=== PATIENT | male | born 1970 | race Caucasian/White ===

== ENCOUNTER 2018-07-03 14:03 | Emergency (ER) | payer MEDICAID, SELFPAY ==
--- NOTE | 2018-07-03 14:09 | NUR.NOTE ---
pt developed 10/10 abdominal pain upon awaking as 0600 am pain has persisted
[2018-07-03 14:10] VITALS: BP 161/71; PULSE 77; RESP 16; TEMP 36.8; O2SAT 99
--- NOTE | 2018-07-03 14:12 | DI.CT_ITS ---
SYMPTOMS/DIAGNOSIS: LEFT LOWER QUADRANT PAIN, HEMATURIA, NAUSEA CT OF THE ABDOMEN AND PELVIS: There are no prior comparison exams. Images were performed from the lung bases through the ischial tuberosities after IV and without oral contrast. There are a few scattered diverticula. There is no evidence of diverticulitis. The colon is mainly decompressed. There is a minimal amount of stool seen in the cecum. The appendix appears normal. There is no small bowel distention. The liver, gallbladder, spleen and pancreas are unremarkable. There is a stone measuring 4 mm seen at the left ureteropelvic junction causing mild left hydronephrosis. There is a mild delay in the left nephrogram. No additional urinary tract calculi are seen. The urinary bladder is nearly empty. There is a mild amount of right perinephric stranding. The prostate appears mildly enlarged. There are bilateral fatty-containing inguinal hernias. The lung bases are clear. No bony abnormalities are seen. IMPRESSION: A 5 mm stone at the left ureteropelvic junction causing mild hydronephrosis. There is mild diverticulosis, but no evidence of diverticulitis.
--- NOTE | 2018-07-03 14:16 | ED.GENADUL_ITS ---
Discharge Plan Disposition Patient Disposition: HOME Condition: Improving Discharge Details Chief Complaint: Abd Prob Clinical Impression: Kidney stone on left side Primary Care Provider: None,None ED Provider: Yaya Barba Home Meds and New Rx's Prescriptions: New diclofenac potassium 50 mg tablet 50 mg PO TID PRN (Reason: pain) Qty: 14 RF: 0 tamsulosin [Flomax] 0.4 mg capsule 0.4 mg PO DAILY Qty: 14 RF: 0 Discharge Instructions Instructions: Kidney Stones (ED) Additional Instructions: Take medication as prescribed and call urology office next week for arrangement of follow-up appointment. Return to emergency department immediately if you have any new or significant worsening of symptoms, fever chills, or any further concerns. Referrals: Jack Tatum MD [ [facility] STAFF PHYSICIAN] - (Follow-up with urologist in 1-2 weeks. Call their office for arrangement of appointment) Medical Decision Making Patient presenting to the emergency department for chief complaint of severe left lower quadrant pain. Patient states that this started this morning and did cause some nausea and vomiting and he has not been able to tolerate any p.o. intake. Physical exam shows no abdominal tenderness, no CVA tenderness, normal cardiac and respiratory examination. Patient denies any urinary symptoms. Plan to check labs and do CT imaging. Patient does state ibuprofen allergy just states some upset stomach but denies any anaphylactoid type reaction, rash, difficulty breathing swallowing or swelling to the lips tongues or mouth. did discuss with patient use of ketorolac for pain control which he was open using this as he states that he does not believe he has any other issues with other NSAIDs. Review of labs show a mild nonspecific leukocytosis, nondiagnostic CMP, urinalysis with significant amount of RBCs Review of CT images along with speaking with radiologist shows a 5 mm stone in the ureteropelvic junction with mild left hydronephrosis otherwise no other acute findings noted. Patient reassessed and stated that he did have significant improvement with the ketorolac and had no ill side effects. Patient was informed of kidney stone which he states he does have a history of stones but has not had one for 20 years. Patient placed upon Flomax and diclofenac and placed upon follow-up list for urology. Return precautions discussed. After discussion of diagnosis and plan of care patient has no further needs, questions, or concerns and states clear understanding to return to the emergency department for any worsening symptoms. HPI General Mode of arrival: ambulatory . Date/Time Provider Initiated Documentation: 07/03/18 14:07 . Limitations to Documentation: no limitations . Information obtained by: patient and RN notes reviewed . History of Present Illness 48 year old M presents to the emergency department with the chief complaint of abd pain, described as moderate, with intensity rated at 10. Quality is described as sharp, and is localized to the abdomen and left. Patient started experiencing this hour(s) (8) and it has been constant. Patient did receive the following treatments prior to arrival, none Related Data Home Medications Medication Instructions Recorded Confirmed diclofenac potassium 50 mg PO TID PRN #14 tab 07/03/18 tamsulosin [Flomax] 0.4 mg PO DAILY #14 cap 07/03/18 Previous Rx's Medication Instructions Recorded diclofenac potassium 50 mg PO TID PRN #14 tab 07/03/18 tamsulosin [Flomax] 0.4 mg PO DAILY #14 cap 07/03/18 Allergies Allergy/AdvReac Type Severity Reaction Status Date / Time ibuprofen Allergy Intermediate Unverified 07/03/18 14:15 acetaminophen [From Percocet] Allergy Mild Unverified 07/03/18 14:15 codeine Allergy Mild Unverified 07/03/18 14:15 oxycodone [From Percocet] Allergy Mild Unverified 07/03/18 14:15 Penicillins Allergy Mild Unverified 07/03/18 14:16 Review of Systems Constitutional Denies chills, Denies fever(s) and Reports poor appetite Cardiovascular Denies chest pain and Denies dyspnea Respiratory Denies cough and Denies dyspnea Gastrointestinal Reports as per HPI, Reports abdominal pain, Denies melena, Denies change in bowel habits, Denies constipation, Reports diarrhea, Reports nausea and Reports vomiting Genitourinary Denies hematuria, Denies difficulty urinating, Denies urinary hesitancy, Denies urinary incontinence and Denies urinary urgency Integumentary/Breasts Denies rash Exam Const General: cooperative Orientation: alert, awake and oriented x3 Resp Effort & Inspection: normal respiratory effort and able to speak in complete sentences Auscultation: clear to auscultation bilaterally Cardio Rate: regular rate Rhythm: regular rhythm Heart Sounds: S1 normal and S2 normal GI Palpation: soft, no hepatosplenomegaly, not firm, no guarding, no masses, no pulsatile masses, not rigid, no splenomegaly and nontender Auscultation: hypoactive bowel sounds Back/Spine/Pelvis Back: no CVA tenderness Neuro General: alert, awake, oriented x3, gait normal and moves all extremities
[2018-07-03 14:40] LABS: Abs Immature Grans 0.03 k/cumm (0.0-0.09); Absolute Basophil Count 0.01 k/cumm (0.0-0.2); Absolute Lymphocyte Count 1.13 k/cumm (1.2-3.4); Absolute Monocyte Count 0.26 k/cumm (0.11-0.7); Basophils % 0.1; HCT 45.7 % (40.0-50.0); Immature Grans % 0.3; Mean Corpuscular Hemoglobin 30.4 pg (27.0-33.0); Mean Corpuscular Volume 86.7 fL (80-95); Monocytes % 2.3; Neutrophils % 87.3; Platelet Count 309 x1000/uL (130-400); RBC 5.27 m/cumm (4.50-6.00); RBC Distribution Width 12.2 % (11.8-14.1); White Blood Cell Count 11.34 k/cumm (4.4-10.8)
[2018-07-03] MEDS: Ketorolac 30 MG/ML VIAL (14:44)
[2018-07-03] MEDS: Normal Saline 1,000 ML 1000 ML IV (14:44)
[2018-07-03] MEDS: Ondansetron 4 MG/2 ML VIAL IVP (14:45)
[2018-07-03 14:53] LABS: ALT 19 U/L (12-78); AST 14 U/L (15-37); Albumin 4.1 g/dL (3.4-5.0); Alkaline Phosphatase 63 U/L (46-116); Anion Gap 10.5 mmol/L (3-11); BUN 8 mg/dL (7-18); Bilirubin, Total 0.8 mg/dL (0.2-1.0); CO2 29.5 mmol/L (21.0-32.0); CREATININE 1.26 mg/dL (0.70-1.30); Calcium 9.5 mg/dL (8.5-10.1); Chloride 101 mmol/L (98-107); Glucose 168 mg/dL (70-100); Lipase 93 U/L (73-393); Potassium 3.5 mmol/L (3.5-5.1); Sodium 141 mmol/L (136-145); Total Protein 8.3 g/dL (6.4-8.2)
[2018-07-03] MEDS: Omnipaque 350 MG/ML 100 ML BTL IJ (15:20)
[2018-07-03 15:43] LABS: Bilirubin Moderate (Negative); Blood Large (Negative); Glucose Negative (Negative); Ketones >=160 mg/dL (Negative); Leukocyte Esterase Negative (Negative); Nitrite Negative (Negative); Specific Gravity >= 1.030 (1.005-1.025); Urobilinogen 0.2 EU/dL (Up TO 0.2); pH 6.5 (5-8)
[2018-07-03 15:44] LABS: Clarity Cloudy
[2018-07-03 15:51] LABS: C & S Indicated? Yes; RBC >50 (0-2)
[2018-07-03 16:52] VITALS: BP 161/71; PULSE 77; RESP 16; TEMP 36.8; O2SAT 99
--- NOTE | 2018-07-06 12:14 | PDOC.ERCMPRO ---
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 Referral faxed to [facility] this am. Trav also called this CM today to discuss his visit here. Trav states he was pleased with the care he received and wanted to know how the referral would work. This CM explained to Trav that a referral had already been faxed to Urology and that Urology would call him with a f/u appt. Trav stated that pain was much better, he was able to get some sleep, and that he had a little burning still this morning but is much more tolerable. Trav has this CM's contact information if further assistance is needed.
--- NOTE | 2018-07-06 12:17 | CMPROGNOTE_ITS ---
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 Referral faxed to [facility] this am. Trav also called this CM today to discuss his visit here. Trav states he was pleased with the care he received and wanted to know how the referral would work. This CM explained to Trav that a referral had already been faxed to Urology and that Urology would call him with a f/u appt. Trav stated that pain was much better, he was able to get some sleep, and that he had a little burning still this morning but is much more tolerable. Trav has this CM's contact information if further assistance is needed.
== END 2018-07-03 16:55 | disposition home or self-care (01) ==
PROVIDERS: Emergency Provider Nurse Practitioner Family
DX: N20.0 Calculus of kidney (principal); R11.2 Nausea with vomiting, unspecified; Z87.442 Personal history of urinary calculi
CPT/HCPCS: 36415; 80053; 83690; 96361; 96374; 96375; 99285; 74177; 81003; 81015; 85025; 87086; 99284; J1885; J2405; J3490

== ENCOUNTER 2018-08-17 00:56 | Outpatient (CLI) | payer MEDICAID, SELFPAY ==
--- NOTE | 2018-08-17 15:30 | DI.US_ITS ---
SYMPTOM/DIAGNOSIS: MONITORING HYDRONEPHROSIS RENAL ULTRASOUND: The right kidney measures 9.2 cm, the left kidney measures 9.9 cm. There is no evidence of hydronephrosis. Pre-void bladder contains 114 cc. Post-void bladder 6 cc. Prostate volume is 13 cc. SUMMARY: Normal renal ultrasound.
== END 2018-08-17 01:16 ==
PROVIDERS: Visit Provider Nurse Practitioner Gerontology
DX: N13.2 Hydronephrosis with renal and ureteral calculous obstruction (principal)
CPT/HCPCS: 76770

== ENCOUNTER 2018-09-02 08:21 | Outpatient (REF) | payer MEDICAID, SELFPAY ==
[2018-09-02 13:13] LABS: Abs Immature Grans 0.02 k/cumm (0.0-0.09); Absolute Basophil Count 0.01 k/cumm (0.0-0.2); Absolute Eosinophil Count 0.06 k/cumm (0.0-0.7); Absolute Lymphocyte Count 2.04 k/cumm (1.2-3.4); Absolute Monocyte Count 0.44 k/cumm (0.11-0.7); Absolute Neutrophil Count 2.84 k/cumm (1.2-6.7); Basophils % 0.2; Eosinophils % 1.1; HCT 44.2 % (40.0-50.0); HGB 14.9 g/dL (13.5-17.5); Immature Grans % 0.4; Lymphocytes % 37.7; Mean Corp. HGB Concentration 33.7 g/dL (32.0-36.0); Mean Corpuscular Hemoglobin 30.7 pg (27.0-33.0); Mean Corpuscular Volume 90.9 fL (80-95); Mean Platelet Volume 9.7 fL (8.0-11.0); Monocytes % 8.1; Neutrophils % 52.5; Platelet Count 282 x1000/uL (130-400); RBC 4.86 m/cumm (4.50-6.00); RBC Distribution Width 12.8 % (11.8-14.1); White Blood Cell Count 5.41 k/cumm (4.4-10.8)
[2018-09-02 13:27] LABS: ALT 25 U/L (12-78); AST 12 U/L (15-37); Albumin 3.9 g/dL (3.4-5.0); Alkaline Phosphatase 51 U/L (46-116); Anion Gap 7.1 mmol/L (3-11); BUN 11 mg/dL (7-18); Bilirubin, Total 0.6 mg/dL (0.2-1.0); CO2 31.9 mmol/L (21.0-32.0); CREATININE 0.97 mg/dL (0.70-1.30); Calcium 9.6 mg/dL (8.5-10.1); Chloride 103 mmol/L (98-107); Cholesterol 228 mg/dL (50-200); Glucose 103 mg/dL (70-100); HDL Cholesterol 37 mg/dL (40-60); LDL CHOLESTEROL 174 mg/dL (<100); Potassium 3.8 mmol/L (3.5-5.1); Sodium 142 mmol/L (136-145); Total Protein 7.4 g/dL (6.4-8.2); Triglyceride 81 mg/dL (30-150)
== END 2018-09-02 08:41 ==
LOC: NCHCN 08:21
PROVIDERS: PCP Nurse Practitioner Family; Visit Provider Nurse Practitioner Family
DX: Z00.00 Encounter for general adult medical examination without abnormal findings (principal); Z13.220 Encounter for screening for lipoid disorders; Z13.228 Encounter for screening for other metabolic disorders; Z13.0 Encounter for screening for diseases of the blood and blood-forming organs and certain disorders involving the immune mechanism
CPT/HCPCS: 80053; 80061; 83721; 85025

== ENCOUNTER 2018-09-08 08:14 | Day surgery (SDC) | payer MEDICAID, SELFPAY ==
--- NOTE | 2018-09-08 06:43 | W.COLOREPORT ---
Date of service: 09/08/18 Time of Service: : Colonoscopy Report Date of procedure: 09/08/18 Pre-op diagnosis general: Colon Cancer Screening Post-op diagnosis procedure note: other (Colorectal polyps and Diverticulosis) Procedure: Colonoscopy with polypectomy by cold forceps and hot snare Surgeon: Candis Cash Anesthesia proc note operative: other (General/ ASA 2/ ) Estimated blood loss (mL): 5 Pathology: other (Ascending polyps, polyp @ 20, polyp @ 18 and polyp @15) Complications: None Disposition: no change Indications: Mr. Saunders is a pleasant 48 year old male who was seen in the office for a screening colonoscopy. This is his first colonoscopy. There is no family history of colon cancer. Risks, benefits and complications have been reviewed. Complications include but are not limited to bleeding, pain, perforation, missed small lesion/polyp, sore throat, aspiration and adverse reaction to the medications. Questions were entertained and answered to their satisfaction and they wished to proceed. No guarantees were given or implied. Prep: Miralax/Dulcolax Procedure Start Time: : Procedure End Time: : Retraction Time: 20 minutes Findings: Sanz-diverticulosis 2 sessile polyps, one in the ascending colon and one at 18 cm 2 pedunculated polyps at 20 and 15 cm Procedure Description: After informed consent was obtained the patient was taken to the procedure room and placed in a left decubitous position. Monitors were applied and a time out was done. The patients name, date of , procedure, allergies to medications and metal in their body was reviewed. The patient was then sedated. Once sedated and comfortable a rectal exam was done. External exam was normal. Internal exam revealed a normal sphincter tone and no palpable masses. The prostate felt smooth and normal size. The scope was then introduced and retro-flexed. No internal hemorrhoids were identified. The scope was then advanced to the cecum without difficulty. The TI and appendiceal orifice were identified. The prep was adequate. The scope was then slowly retracted over 20 minutes back into the rectum. 2 Sessile Polyps were removed with cold forceps in the ascending colon and at 15 cm. 2 pedunculated polyps were removed with a hot snare at 20 cm and at 15 cm. The one at 20 cm was 2 cm in size and had a long stalk. The scope was removed and the patient was woken up and taken back to Same day surgery in stable condition. The patient tolerated the procedure well and there were no immediate complications. Follow up: The patient should follow up in 3-5 years unless they develop changes in bowel habits or other new gastrointestinal complaints.
--- NOTE | 2018-09-08 06:45 | W.PM.DSUDISC ---
Discharge Plan Disposition Patient Disposition: HOME Condition: Good Discharge Details Reason For Visit: Colon Cancer Screening Attending Provider: Candis Cash Primary Care Provider: Audi Zarate Home Meds and New Rx's Prescriptions: Continued acetaminophen [Tylenol Extra Strength] 500 mg Tablet 2 mg PO PRN PRNRF: 0 Discontinued polyethylene glycol 3350 17 gram/dose powder 238 g PO ONCE Qty: 238 RF: 0 bisacodyl [Dulcolax (bisacodyl)] 5 mg tablet,delayed release (DR/EC) 5 mg PO ONCE Qty: 4 RF: 0 Discharge Instructions Instructions: Colonoscopy (DC), Diverticulosis (DC), Colorectal Polyps (DC) Additional Instructions: Findings: 4 polyps Diverticulosis Follow up: 3-5 years Please call if you develop: fevers >101.5 Nausea or Vomiting Abdominal pain that is not transient DAY SURGERY UNIT POST COLONOSCOPY INSTRUCTIONS 1. Because there will be medication in your system for the next 24 hours, you may feel a little sleepy. Your coordination will be affected. Therefore: a. Do not drive or operate dangerous equipment for 24 hours. b. Do not drink alcohol beverages for 24 hours (not even beer). c. Plan to go home and rest for the day. 2. Generally there are no restrictions on your activity after a day or so has gone by, but you may feel a bit fatigued for a few days. 3 After you arrive home you may have a light meal and return to a normal diet as you can tolerate it without feeling sick to your stomach. 4. After surgery, you may feel pain or discomfort. This should be only transient, but if it persists please contact your doctor. 5. If there are any questions regarding the findings of your procedure, please feel free to contact your doctor. 6. If you are unable to contact your doctor with a problem, contact the hospital at [phone]. 7. Continue all your regular medications unless directed otherwise. I understand the above instructions and have no questions. Signature of Patient or Responsible Adult Escort Date/Time Name of Responsible Adult Escort Signature of Nurse Date/Time Activity:: Activity as Tolerated Diet:: high fiber diet Discharge Orders Discharge Orders: Discharge Order (Routine); Ordered 09/08/18 Ordered By: Candis Cash DS: Diagnosis Discharge Diagnosis (1) S/P colonoscopy: Status: Acute (2) Diverticulosis: Status: Acute (3) Colorectal polyps: Status: Acute
[2018-09-08 08:45] VITALS: BP 129/75; PULSE 85; RESP 18; TEMP 35.6; O2SAT 96
[2018-09-08] MEDS: Lactated Ringers 1,000 ML 80 ML IV (08:55)
--- NOTE | 2018-09-08 10:16 | BOWEL_PTH ---
PATIENT: Trav Saunders LOC: [facility] U#:[id number] AGE/SX: 48/M ROOM: RE09/08/[address]: Candis Cash MD : [id number] BED: DIS: 09/08/2018 SPEC #: [id number] RECD: 09/08/18 12:58 STATUS: FERNANDO REQ #: [id number] ADOLFO: 09/08/18 10:[address]: Candis Cash DEPT: Surgical Specimen RECD BY: Marcela Dubois ENTERED: 09/08/18 12:59 SP TYPE: Bowel OTHR DR: Audi Zarate Tissues: 1 - BIOPSY BOWEL 2 - BIOPSY BOWEL 3 - BIOPSY BOWEL 4 - BIOPSY BOWEL Procedures: GROSS AND MICRO LEVEL 4 Comments: [id number]
[2018-09-08 11:02] VITALS: BP 134/87; PULSE 68; RESP 16; TEMP 35.5; O2SAT 99
== END 2018-09-08 11:30 | disposition home or self-care (01) ==
LOC: SUR 08:15
PROVIDERS: PCP Nurse Practitioner Family; Visit Provider Surgery
PROC: 0DJD8ZZ Inspection of Lower Intestinal Tract, Via Natural or Artificial Opening Endoscopic (ICD-10-PCS; CPT 45378; principal; 2018-09-08 09:45)
DX: Z12.11 Encounter for screening for malignant neoplasm of colon (principal); D12.2 Benign neoplasm of ascending colon; K63.5 Polyp of colon; D12.6 Benign neoplasm of colon, unspecified
CPT/HCPCS: 45385; 45380; 88305

== ENCOUNTER 2018-09-11 01:30 | Emergency (ER) | payer MEDICAID, SELFPAY ==
[2018-09-11 01:33] VITALS: BP 151/95; PULSE 71; RESP 26; TEMP 36.7; O2SAT 96
--- NOTE | 2018-09-11 01:40 | ED.GENADUL_ITS ---
Discharge Plan Disposition Patient Disposition: HOME Condition: Good Discharge Details Chief Complaint: Urinary Clinical Impression: Calculus of distal left ureter Primary Care Provider: Audi Zarate ED Provider: Dago Acosta [place] Meds and New Rx's Prescriptions: New tamsulosin 0.4 mg Capsule 0.4 mg PO DAILY Qty: 14 RF: 0 ondansetron 4 mg tablet,disintegrating 4 mg PO TID-QID PRN (Reason: nausea and vomiting) Qty: 10 RF: 0 diclofenac potassium 50 mg tablet 50 mg PO TID PRN (Reason: pain) Qty: 10 RF: 0 Discharge Instructions Instructions: Renal Colic (ED) Additional Instructions: There is a 4 mm stone on the left side at the level of the bladder. It should be small enough to pass on its own. Previously stone was seen at the level of the kidney. There is mild swelling. Labs look okay. Contact urology for follow-up. Take Flomax daily in hopes that it will help the stone pass. Use the diclofenac for pain. You may also take Tylenol if needed. Ondansetron if you develop vomiting. Return to ED for fever, vomiting, worsening pain. Referrals: Jack Tatum MD [ [facility] STAFF PHYSICIAN] - Discharge Data Discharge Date/Time-TO BE ENTERED AT DEPARTURE: 09/11/18 04:49 Medical Decision Making Patient presenting with acute onset of left lower quadrant pain feels similar to previous kidney stone. He reports having normal ultrasound. He did have colonoscopy recently. He has a benign, soft belly. Suspect this is kidney stone but given the recent colonoscopy despite a benign abdomen I am going to rescan. IV established and fluids, Toradol and Zofran given. Patient's symptoms pretty much resolved after the Toradol. Laboratory studies show normal white count and normal kidney function. Urinalysis with blood only, no sign of infection. CT scan shows a distal left ureteral stone at 4 mm with mild to moderate hydro. Previous stone had been at the [facility]. This is likely the same stone as patient does not recall ever passing it. At this point he is very comfortable after just Toradol. We will have him follow-up with urology. Will restart Flomax. We will continue the diclofenac for pain control. He may also use Tylenol. Return to ED if fever, recurrent/severe pain, vomiting. Medical Records Medical records reviewed: Yes I reviewed the patient's medical records. Lab Data Lab results reviewed: Yes I reviewed the patient's lab results. HPI General Mode of arrival: ambulatory . Date/Time Provider Initiated Documentation: 09/11/18 01:36 . Limitations to Documentation: no limitations . Information obtained by: patient and old records reviewed . HPI Narrative: Patient presents to ED with left lower quadrant abdominal pain, nausea, vomiting. Onset was acute. Feels similar to previous kidney stone couple months ago. He has subsequently followed up with urology and had a normal renal ultrasound. He did have a colonoscopy a couple of days ago. He appeared to have no complications from that. He has had no fever, bleeding. He did he has no testicular pain. He has no fever. Related Data Home Medications Medication Instructions Recorded Confirmed diclofenac potassium 50 mg PO TID PRN #10 tab 09/11/18 ondansetron 4 mg PO TID-QID PRN #10 tab 09/11/18 tamsulosin 0.4 mg PO DAILY #14 cap 09/11/18 Previous Rx's Medication Instructions Recorded diclofenac potassium 50 mg PO TID PRN #10 tab 09/11/18 ondansetron 4 mg PO TID-QID PRN #10 tab 09/11/18 tamsulosin 0.4 mg PO DAILY #14 cap 09/11/18 Allergies Allergy/AdvReac Type Severity Reaction Status Date / Time ibuprofen Allergy Severe vomiting Unverified 09/11/18 02:35 oxycodone [From Percocet] Allergy Severe severe Unverified 09/11/18 02:35 vomiting & severe nausea Penicillins Allergy Severe severe Unverified 09/11/18 02:35 joint swelling and hives codeine Allergy Mild Unverified 09/11/18 02:35 General Stated Complaint: Urinary YARED: 3 Review of Systems Review of Systems 02/15 Review of Systems completed and is negative except as stated above in HPI (Systems reviewed: Const, Eyes, ENT, Resp, CV, GI, , MSK, Skin, Neuro) [facility] Medical History Colorectal polyps (Acute ~09/08/18) Diverticulosis (Acute ~09/08/18) History of ADHD (Acute) History of herpes simplex infection (Acute) History of mood disorder (Acute) Kidney stone (Chronic) Surgical History S/P colonoscopy (Acute ~09/08/18) History of tonsillectomy (Chronic) Social History Smoking/Tobacco Use Status: Current, status unknown Alcohol Intake: former Drug use: Daily Substance use type: marijuana Details: Dabbing with marijuana/CBD daily Pt states quit drinking alcohol july 10, 1996 Do you feel safe at home: Yes Do you feel safe in your relationship?: Yes Exam Narrative Exam Narrative: Vitals: Afebrile. Hypertensive. Tachypneic due to discomfort and pain but normal saturations. Const: WDWN male pale and uncomfortable. HEENT: NC/AT. Normal facial exam. Eyes: Normal conjunctiva and sclera. Neck: Supple. Trachea midline. Lungs: Normal respiratory effort. Lungs are clear. Cor: RRR without murmur/gallop. Good radial pulses. GI: Soft. NT/ND. No guarding or rebound. Back: No CVAT. Neuro: A+O x 3. CN grossly in tact. Good strength and no focal deficit. Ext: No C/C/E. No deformity or tenderness. Skin: Warm and dry without rash. Course Vital Signs Temperature 98.1 F 09/11/18 01:33 Pulse 71 09/11/18 01:33 Respiratory Rate 26 H 09/11/18 01:33 Blood Pressure 151/95 H 09/11/18 01:33 Pulse Oximetry 96 09/11/18 01:33 Temperature 98.1 F 09/11/18 01:33 Temperature Source Tympanic 09/11/18 01:33 Pulse 71 09/11/18 01:33 Respiratory Rate 26 H 09/11/18 01:33 Blood Pressure 151/95 H 09/11/18 01:33 Pulse Oximetry 96 09/11/18 01:33 Oxygen Delivery Method Room Air 09/11/18 01:33 Oxygen Flow Rate 0 09/11/18 01:33 Pain Level 3 09/11/18 01:33 Comment 09/11/18 01:33
[2018-09-11 02:10] LABS: Abs Immature Grans 0.03 k/cumm (0.0-0.09); Absolute Basophil Count 0.01 k/cumm (0.0-0.2); Absolute Eosinophil Count 0.02 k/cumm (0.0-0.7); Absolute Lymphocyte Count 1.76 k/cumm (1.2-3.4); Absolute Monocyte Count 0.62 k/cumm (0.11-0.7); Basophils % 0.1; Eosinophils % 0.2; HGB 14.3 g/dL (13.5-17.5); Immature Grans % 0.3; Lymphocytes % 16.2; Mean Corp. HGB Concentration 34.9 g/dL (32.0-36.0); Mean Corpuscular Hemoglobin 30.8 pg (27.0-33.0); Mean Corpuscular Volume 88.2 fL (80-95); Mean Platelet Volume 9.2 fL (8.0-11.0); Monocytes % 5.7; Neutrophils % 77.5; Platelet Count 273 x1000/uL (130-400); RBC 4.65 m/cumm (4.50-6.00); RBC Distribution Width 12.7 % (11.8-14.1); White Blood Cell Count 10.84 k/cumm (4.4-10.8)
[2018-09-11 02:15] LABS: Anion Gap 13.6 mmol/L (3-11); BUN 10 mg/dL (7-18); CO2 24.4 mmol/L (21.0-32.0); Calcium 9.1 mg/dL (8.5-10.1); Chloride 101 mmol/L (98-107); Glucose 154 mg/dL (70-100); Sodium 139 mmol/L (136-145)
[2018-09-11] MEDS: Ketorolac 30 MG/ML VIAL IVP (02:16)
[2018-09-11] MEDS: Ondansetron 4 MG/2 ML VIAL IVP (02:16)
[2018-09-11] MEDS: Normal Saline Flush 10 ML SYR IVP (02:17)
[2018-09-11] MEDS: Lactated Ringers 1,000 ML 1000 ML IV (02:25)
--- NOTE | 2018-09-11 02:30 | DI.CT_ITS ---
SYMPTOM/DIAGNOSIS: LEFT ABDOMINAL PAIN ABDOMINAL/PELVIC CT: 09/11 CT examination of the abdomen and pelvis was performed without contrast administration. Images obtained through the lung bases are unremarkable. Visualized portions of the liver appear intact. Spleen is unremarkable in appearance by noncontrast appearance as are the pancreas, gallbladder and bile ducts. Adrenals appear normal. Small bilateral fat containing inguinal hernias noted. No other significant abdominal wall hernia seen. No abdominal or pelvic adenopathy seen. Appendix is normal. No evidence of diverticulitis or bowel obstruction. There is a tiny nonobstructing right renal calculus. No additional right sided urinary tract calcification seen. There is left hydronephrosis and hydroureter to the level of the ureterovesical junction where there is an apparent intramural approximately 4 mm in diameter obstructing stone. No additional left sided urinary tract calcification identified. CONCLUSION: Obstructing left 4 mm UVJ stone. Nonobstructing right renal calculus noted as well.
--- NOTE | 2018-09-11 03:17 | DI.VRAD_ITS ---
EXAM: CT Abdomen and Pelvis Without Contrast EXAM DATE/TIME: 09/11/2018 1:54 AM CLINICAL HISTORY: 48 years old, male; Localized; Patient HX: Left abdominal pain, previous stone in July TECHNIQUE: Imaging protocol: Axial computed tomography images of the abdomen and pelvis without contrast. Coronal and sagittal reformatted images were created and reviewed. Radiation optimization: All CT scans at this facility use at least one of these dose optimization techniques: automated exposure control; mA and/or kV adjustment per patient size (includes targeted exams where dose is matched to clinical indication); or iterative reconstruction. COMPARISON: CT ABDOMEN PELVIS W 07/03/2018 3:04 PM FINDINGS: ABDOMEN: Liver: Normal. No mass. Gallbladder and bile ducts: Normal. No calcified stones. No ductal dilation. Pancreas: Normal. No ductal dilation. Spleen: Normal. No splenomegaly. Adrenals: Normal. No mass. Kidneys and ureters: 4 mm calculus left distal ureter with mild left hydroureteronephrosis. Stomach and bowel: Normal. No obstruction. No mucosal thickening. Appendix: No evidence of appendicitis. PELVIS: Bladder: Unremarkable as visualized. Reproductive: Unremarkable as visualized. ABDOMEN and PELVIS: Intraperitoneal space: Normal. No free air. No significant fluid collection. Bones/joints: No acute fracture. No dislocation. Soft tissues: Unremarkable. Vasculature: Normal. No abdominal aortic aneurysm. Lymph nodes: Normal. No enlarged lymph nodes. Other findings: Nonobstructing right calculus. IMPRESSION: 4 mm calculus left distal ureter with mild left hydroureteronephrosis. Dictated and Authenticated by: Igor Vance MD. Ordering:MICHAEL Loza MD
[2018-09-11] MEDS: Tamsulosin 0.4 MG CAPCR PO (03:49)
[2018-09-11 03:50] VITALS: BP 151/78; PULSE 81; RESP 18; O2SAT 99
[2018-09-11 04:10] LABS: Bilirubin Negative (Negative); Blood Large (Negative); Clarity Clear; Glucose Negative (Negative); Ketones 80 mg/dL (Negative); Leukocyte Esterase Trace (Negative); Nitrite Negative (Negative); Urobilinogen 0.2 EU/dL (Up TO 0.2); pH 6.5 (5-8)
[2018-09-11 04:14] LABS: Bacteria Few HPF (Negative); C & S Indicated? Yes; Casts Negative LPF (Negative); Crystals Negative HPF (Negative); Epithelial Cells Rare HPF (Negative); Mucus Negative (Negative); WBC 0-2 HPF (0-5)
[2018-09-11 05:00] VITALS: BP 151/78; PULSE 81; RESP 18; O2SAT 99
== END 2018-09-11 04:49 | disposition home or self-care (01) ==
PROVIDERS: Emergency Provider Emergency Medicine; PCP Nurse Practitioner Family
DX: N13.39 Other hydronephrosis (principal); Z87.442 Personal history of urinary calculi
CPT/HCPCS: 36415; 80048; 96361; 96374; 96375; 99284; 74176; 81003; 81015; 85025; 87086; J1885

== ENCOUNTER 2018-10-15 12:39 | Emergency (ER) | payer MEDICAID, SELFPAY ==
[2018-10-15 12:42] VITALS: BP 104/70; PULSE 97; RESP 16; TEMP 36.7; O2SAT 100
[2018-10-15] MEDS: Tetanus & Diphtheria Tox,ADULT 0.5 ML VIAL IM (12:52)
--- NOTE | 2018-10-15 13:03 | ED.GENADUL_ITS ---
Discharge Plan Disposition Patient Disposition: HOME Condition: Improving Discharge Details Chief Complaint: Laceration Clinical Impression: Laceration of left thumb Primary Care Provider: Audi Zarate ED Provider: Zach Sigala Home Meds and New Rx's Prescriptions: Continued diclofenac potassium 50 mg tablet 50 mg PO TID PRN (Reason: pain) Qty: 10 RF: 0 Discharge Instructions Instructions: Laceration (ED) Additional Instructions: Return or see your regular doctor for removal of sutures in 7 days time. Return sooner if you develop a fever, discharge from the wound, or any other acute concerns. Medical Decision Making 48-year-old male who lacerated his left thumb on a trailer when it was pinched. Full motor and sensory intact. Tetanus updated. Anesthetized, cleansed, irrigated and examined in a bloodless field without evidence of foreign body. No deep structures exposed or injured. Repaired with 4 interrupted nylon sutures. Home care and follow-up discussed with patient HPI General Mode of arrival: ambulatory . Date/Time Provider Initiated Documentation: 10/15/18 12:45 . Limitations to Documentation: no limitations . Information obtained by: patient . History of Present Illness 48 year old M presents to the emergency department with the chief complaint of Left thumb laceration, no numbness, no weakness, described as moderate, Quality is described as dull and constant, and is localized to the upper extremity. Patient reports no radiation. Patient started experiencing this minute(s) and it has been constant. No relieving factors improve symptom(s), No exacerbating factors reported . Patient notes no other symptoms.. Patient did receive the following treatments prior to arrival, other (Soap and water cleanse) Related Data Home Medications Medication Instructions Recorded Confirmed diclofenac potassium 50 mg PO TID PRN #10 tab 09/11/18 10/15/18 Previous Rx's Medication Instructions Recorded diclofenac potassium 50 mg PO TID PRN #10 tab 09/11/18 Allergies Allergy/AdvReac Type Severity Reaction Status Date / Time ibuprofen Allergy Severe vomiting Unverified 10/15/18 12:45 oxycodone [From Percocet] Allergy Severe severe Unverified 10/15/18 12:45 vomiting & severe nausea Penicillins Allergy Severe severe Unverified 10/15/18 12:45 joint swelling and hives codeine Allergy Mild Unverified 10/15/18 12:45 General Stated Complaint: Laceration YARED: 3 Review of Systems Review of Systems 4 systems reviewed and otherwise- [facility] Medical History Colorectal polyps (Acute ~09/08/18) Diverticulosis (Acute ~09/08/18) History of ADHD (Acute) History of herpes simplex infection (Acute) History of mood disorder (Acute) Kidney stone (Chronic) Surgical History S/P colonoscopy (Acute ~09/08/18) History of tonsillectomy (Chronic) Social History Smoking/Tobacco Use Status: Current, status unknown Alcohol Intake: former Drug use: Daily Substance use type: marijuana Details: Dabbing with marijuana/CBD daily Pt states quit drinking alcohol july 10, 1996 Do you feel safe at home: Yes Do you feel safe in your relationship?: Yes Exam Narrative Exam Narrative: GEN: awake, alert, oriented 3. Pleasant, well groomed, interactive. HEAD: Normocephalic, atraumatic ENT: Mucous membranes moist, oropharynx unremarkable, External ear exam unremarkable EYES: PERRL, EOMI EXT: Full ROM, no edema, no rash. The left thumb on the dorsal surface has a C- shaped laceration but goes to but does not include the nailbed. There is full extension of the thumb present against resistance. Two-point discrimination intact at 1 cm Neuro: Grossly normal neurologic exam, conversant, interactive. Psych: Speech fluent, thoughts congruent, affect normal Course Vital Signs Temperature 36.7 C 10/15/18 12:42 Pulse 97 H 10/15/18 12:42 Respiratory Rate 16 10/15/18 12:42 Blood Pressure 104/70 10/15/18 12:42 Pulse Oximetry 100 10/15/18 12:42 Temperature 36.7 C 10/15/18 12:42 Temperature Source Temporal Artery Scan 10/15/18 12:42 Pulse 97 H 10/15/18 12:42 Respiratory Rate 16 10/15/18 12:42 Respiratory Effort Non-Labored 10/15/18 12:44 Blood Pressure 104/70 10/15/18 12:42 Blood Pressure Position Sitting 10/15/18 12:42 Pulse Oximetry 100 10/15/18 12:42 Oxygen Delivery Method Room Air 10/15/18 12:42 Oxygen Flow Rate 0 10/15/18 12:42 Pain Level 1 10/15/18 12:42
== END 2018-10-15 13:08 | disposition home or self-care (01) ==
PROVIDERS: Emergency Provider Emergency Medicine; PCP Nurse Practitioner Family
DX: S61.012A Laceration without foreign body of left thumb without damage to nail, initial encounter (principal); W45.8XXA Other foreign body or object entering through skin, initial encounter
CPT/HCPCS: 12002; 90471

== ENCOUNTER 2020-02-15 09:21 | Outpatient (REF) | payer MEDICAID, SELFPAY ==
[2020-02-15 19:27] LABS: Anion Gap 8.3 mmol/L (3-11); BUN 10 mg/dL (7-18); CO2 28.7 mmol/L (21.0-32.0); CREATININE 0.97 mg/dL (0.70-1.30); Calcium 9.7 mg/dL (8.5-10.1); Calculated LDL 130 mg/dL (<100); Chloride 105 mmol/L (98-107); Cholesterol 190 mg/dL (<200); Glucose 100 mg/dL (74-106); HDL Cholesterol 39 mg/dL (40-60); Potassium 4.4 mmol/L (3.5-5.1); Sodium 142 mmol/L (136-145); Triglyceride 106 mg/dL (<150)
[2020-02-15 19:38] LABS: Hemoglobin A1C 5.1 % (<5.7)
[2020-02-16 17:35] LABS: PSA, Screening 1.9 ng/mL (0.0-3.5)
[2020-02-17 04:28] LABS: Vitamin D 25 Total 23.2 ng/ml (30-100)
== END 2020-02-15 09:41 ==
LOC: NCHCN 09:21
PROVIDERS: PCP Nurse Practitioner Family; Visit Provider Physician Assistant
DX: F39 Unspecified mood [affective] disorder (principal); E55.9 Vitamin D deficiency, unspecified; R73.03 Prediabetes; E78.5 Hyperlipidemia, unspecified; Z12.5 Encounter for screening for malignant neoplasm of prostate
CPT/HCPCS: 80048; 80061; 82306; 84153; 83036

== ENCOUNTER 2020-07-21 22:40 | Emergency (ER) | payer MEDICAID, SELFPAY ==
[2020-07-21 22:47] VITALS: BP 162/117; PULSE 96; RESP 20; TEMP 36.7; O2SAT 99
--- NOTE | 2020-07-21 22:54 | W.ED.GENAD ---
Discharge Plan Disposition Patient Disposition: HOME Condition: Stable Discharge Details Clinical Impression: Kidney stone Primary Care Provider: Tim Champion ED Provider: Kayla Kelly Home Meds and New Rx's Prescriptions: New tamsulosin [Flomax] 0.4 mg capsule 0.4 mg PO DAILY Qty: 10 RF: 0 diclofenac potassium 50 mg tablet 50 mg PO BID PRN (Reason: pain) Qty: 14 RF: 0 Discharge Instructions Instructions: Kidney Stones (ED) Additional Instructions: You have a 2 mm right-sided stone. This should be able to pass naturally. Please encourage water intake. You may use the diclofenac as prescribed to help with discomfort. You may augment this with Tylenol as needed. Please take the Flomax as prescribed to help with the passage of stone. You may stop this medication once the stone has passed. The referral for urology consult has been sent. Please bring in the stone you already collected for further testing. If you develop fever/chills, increased pain, inability stay hydrated or other new/worsening symptom please seek care urgently once again. Otherwise, please follow-up with primary care in the next 1 to 2 weeks for reevaluation. Referrals: Tim Champion [Primary Care Provider] - Jack Tatum MD [ [facility] STAFF PHYSICIAN] - Medical Decision Making Patient is a pleasant 50-year-old male presenting today with chief complaint of right flank pain. Reports that the pain began yesterday. Describes the pain as waxing and waning. Reports that this evening the pain became maximal and the pain is quite severe causing him to have some nausea. No vomiting. Denies any dysuria, hematuria. No change in bowel habits. No previous abdominal surgeries. Patient does have a history of kidney stones with a system several years since his last. He denies any fevers or chills. Reports that his mother also has history of stones always need surgical excision of these. He has not taken anything as of yet for his discomfort. On exam, patient appears nontoxic. He is hypertensive at 152/117, pulse of 96. Vital signs otherwise within normal limits. He has no flank pain at this time with percussion. Abdominal exam is benign, no pain over McBurney's point. Patient states that he did have some pain that radiated from the right flank into the right lower quadrant which was how his kidney stone presented historically. However, at this time pain is quite minimal and he is declining any analgesics. He denies any penile discharge, no testicular pain. Plan to obtain CT for renal colic, baseline labs. Patient is declining any analgesics but will give Toradol to help with discomfort prior to discharge or when pain medication is required as this is worked well for him historically. FINDINGS: Liver: Liver is unremarkable as visualized. Gallbladder and bile ducts: Normal. No calcified stones. No ductal dilation. Pancreas: Normal. No ductal dilation. Spleen: Normal. No splenomegaly. Adrenal glands: Normal. No mass. Kidneys and ureters: 2 mm calculus in the proximal right ureter with mild right pelviectasis. The stone density is approximately 300 Hounsfield units and is visible on the pipe smoking machine operator radiograph overlying the right L3 transverse process. There is a punctate nonobstructing calculus in the lower pole of the right kidney. Stomach and bowel: No evidence of bowel obstruction. Colonic diverticulosis without diverticulitis. Appendix: Normal appendix. Intraperitoneal space: Unremarkable. No free air. No significant fluid collection. Vasculature: Unremarkable. No abdominal aortic aneurysm. Lymph nodes: Unremarkable. No enlarged lymph nodes. Urinary bladder: Unremarkable as visualized. Reproductive: Unremarkable as visualized. Bones/joints: Unremarkable. No acute fracture. Soft tissues: Bilateral inguinal hernias containing fat. IMPRESSION: 2 mm stone in the proximal right ureter with mild right obstructive uropathy. Labs reviewed. No other cytosis. Stable H&H. CMP shows all normal kidney function. Glucose slightly elevated at 152. Awaiting urinalysis. Urinalysis shows large amount of blood with over 50 RBCs, otherwise no significant normality. Discussed the findings with the patient. Encourage water intake. Patient does have adverse reaction to ibuprofen and states that typically he is prescribed diclofenac with good results. Is requesting a refill of this. We will give the patient a dose of Toradol prior to his discharge. Return precautions were discussed. Advise follow-up with primary care in the next 1 to 2 weeks. Also will send a referral to urology. All question concerns were addressed and he is agreement this plan. HPI General Mode of arrival: ambulatory. Date/Time Provider Initiated Documentation: 07/21/20 22:54. Limitations to Documentation: no limitations. Information obtained by: patient and RN notes reviewed. History of Present Illness 50 year old M presents to the emergency department with the chief complaint of right flank pain, described as mild, with intensity rated at 2. Quality is described as aching, and is localized to the back. Patient reports no radiation. Patient started experiencing this day(s) (1) and it has been colicky. No relieving factors improve symptom(s), No exacerbating factors reported . Patient notes no other symptoms. and nausea/vomiting (reports nausea during maximal time of pain); denies chest pain, diaphoresis, fever/chills, loss of appetite, rash, shortness of breath and weakness. Patient did receive the following treatments prior to arrival, none Related Data Home Medications Medication Instructions Recorded Confirmed diclofenac potassium 50 mg PO BID PRN #14 tab 07/22/20 tamsulosin [Flomax] 0.4 mg PO DAILY #10 cap 07/22/20 Previous Rx's Medication Instructions Recorded diclofenac potassium 50 mg PO BID PRN #14 tab 07/22/20 tamsulosin [Flomax] 0.4 mg PO DAILY #10 cap 07/22/20 Allergies Allergy/AdvReac Type Severity Reaction Status Date / Time ibuprofen Allergy Severe vomiting Unverified 07/21/20 23:37 oxycodone [From Percocet] Allergy Severe severe Unverified 07/21/20 23:37 vomiting & severe nausea Penicillins Allergy Severe severe Unverified 07/21/20 23:37 joint swelling and hives codeine Allergy Mild Unverified 07/21/20 23:37 General Stated Complaint: FlankPain YARED: 3 Review of Systems Constitutional Constitutional: Reports as per HPI, Denies chills, Denies fatigue, Denies fever(s) and Denies headache(s) ENT Ears, Nose, Mouth, and Throat: Denies headache(s) Cardiovascular Cardiovascular: Reports as per HPI, Denies chest pain and Denies dyspnea Respiratory Respiratory: Reports as per HPI, Denies cough and Denies dyspnea Gastrointestinal Gastrointestinal: Reports as per HPI Genitourinary Genitourinary: Reports as per HPI Musculoskeletal Musculoskeletal: Reports as per HPI Neurologic Neurologic: Denies headache(s) Endocrine Endocrine: Denies fatigue [facility] Medical History (Updated 07/22/20 @ 00:39 by EDWARD Valdez) Colorectal polyps (~09/08/18) Diverticulosis (~09/08/18) History of ADHD History of herpes simplex infection History of mood disorder Kidney stone Surgical History History of tonsillectomy S/P colonoscopy (~09/08/18) Social History Smoking/Tobacco Use Status: Former Tobacco Use Smoking risk assessment performed?: Yes Alcohol Intake: former Substance use type: does not use and former substance user Details: Dabbing with marijuana/CBD daily Pt states quit drinking alcohol july 10, 1996 Do you feel safe at home: Yes Do you feel safe in your relationship?: Yes Exam Const General: cooperative, healthy appearing, comfortable, no acute distress and well developed Nutritional Appearance: average body habitus and well nourished Orientation: alert and awake HENMT Mouth: moist mucous membranes Resp Effort & Inspection: normal respiratory effort and no respiratory distress Auscultation: clear to auscultation bilaterally, no rales, no rhonchi and no wheezes Cardio Rate: regular rate Rhythm: regular rhythm Heart Sounds: S1 normal and S2 normal GI Inspection: normal to inspection, no edema and non-distended Palpation: soft, no hepatosplenomegaly, no guarding, no hernias, no pulsatile masses and nontender Percussion: normal to percussion Auscultation: normal bowel sounds Back/Spine/Pelvis Back: no CVA tenderness Skin General skin exam: no rashes or lesions noted Neuro General: patient alert and patient awake Cognition: normal cognition Speech: speech normal Gait: normal gait Psych Appearance: grossly normal and well kempt Mental Status: mental status grossly normal Speech and Movement: speech and movement normal Course Vital Signs Vital signs: Vital Signs Temperature 36.7 C 07/21/20 22:47 Pulse 96 H 07/21/20 22:47 Respiratory Rate 20 07/21/20 22:47 Blood Pressure 162/117 H 07/21/20 22:47 Pulse Oximetry 99 07/21/20 22:47 Temperature 36.7 C 07/21/20 22:47 Temperature Source Skin 07/21/20 22:47 Pulse 96 H 07/21/20 22:47 Respiratory Rate 20 07/21/20 22:47 Respiratory Effort Non-Labored 07/21/20 22:51 Blood Pressure 162/117 H 07/21/20 22:47 Blood Pressure Position Sitting 07/21/20 22:47 Pulse Oximetry 99 07/21/20 22:47 Oxygen Delivery Method Room Air 07/21/20 22:47 Oxygen Flow Rate 0 07/21/20 22:47 Pain Level 6 07/21/20 22:47
[2020-07-21 23:18] LABS: Abs Immature Grans 0.02 10^3/uL (0.0-0.06); Absolute Basophil Count 0.04 10^3/uL (0.0-0.2); Absolute Eosinophil Count 0.05 10^3/uL (0.0-0.7); Absolute Lymphocyte Count 2.78 10^3/uL (1.2-3.4); Absolute Monocyte Count 0.48 10^3/uL (0.1-0.8); Absolute Neutrophil Count 3.64 10^3/uL (1.2-6.7); Basophils % 0.6; Eosinophils % 0.7; HCT 43.8 % (40.0-50.0); HGB 15.2 g/dL (13.5-17.5); Immature Grans % 0.3; Lymphocytes % 39.7; MCH 30.6 pg (27.0-33.0); MCHC 34.7 % (32.0-36.0); MCV 88.1 fL (80-95); MPV 9.2 fL (8.0-11.0); Monocytes % 6.8; Neutrophils % 51.9; Nucleated RBC 0 %; Platelet Count 278 10^3/uL (130-400); RBC 4.97 10^6/uL (4.36-5.78); RDW 11.8 % (11.8-14.1); RDW-SD 37.8 fL; WBC 7.01 10^3/uL (4.4-10.8)
--- NOTE | 2020-07-21 23:27 | DI.CT_ITS ---
EXAM: CT RENAL COLIC WO CLINICAL HISTORY: rfight flank pain. TECHNIQUE: Imaging Protocol: Axial computed tomography images with coronal and sagittal reformatted images were created and reviewed CONTRAST MATERIAL: Intravenous: none Oral: None COMPARISON: CT CT renal colic wo from 09/11/2018 FINDINGS: VISUALIZED LUNG BASES: No nodules nor pleural effusions evident. ABDOMEN: There is no ascites. LIVER: There are no obvious focal hepatic lesions evident of this noninfused study. GALLBLADDER/BILIARY: No obvious gallbladder pathology. CBD is not dilated. PANCREAS: No evidence of pancreatic mass nor dilatation of the pancreatic duct. SPLEEN: Spleen is not enlarged. No obvious intrasplenic lesions. ADRENALS: There are no significant adrenal masses. KIDNEYS:There is a nonobstructive 1 millimeter calculus in the left kidney. In the right kidney ther e is a 2 millimeter calculus in lower pole calyx. There is also a 2-3 millimeter calculus in the upp er right ureter with mild dilatation of collecting system above this level. There ureter below this level exhibits normal diameter and there are no additional calculi lower down in the right ureter nor within the urinary bladder lumen. The bladder is not distended.. No other focal renal findings. ABDOMINAL AORTA: Abdominal aorta is not enlarged. LYMPH NODES: There is no retroperitoneal nor paraaortic adenopathy. ABDOMINAL WALL/GI: No evidence of significant anterior abdominal wall hernia. No bowel obstruction. PELVIS: LYMPH NODES: There is no intrapelvic nor inguinal adenopathy. GI: No evidence of appendicitis.No evidence of sigmoid diverticulitis. URINARY BLADDER: No calculi nor obvious masses evident REPRODUCTIVE: Prostate size upper normal. Few calcifications are noted within the prostate. OSSEOUS: No significant osseous lesions. IMPRESSION: 1. There is a 2-3 millimeter calculus in the upper right ureter with mild dilatation of the right col lecting system above this level. 2. Otherwise, there is a solitary tiny calculus in each kidney. No ominous renal masses. 3. No other significant findings in the abdomen and pelvis. RADIATION DOSE DELIVERED: 748.53mGy.cm Total DLP DATA REPOSITORY: All CT scans at this facility are submitted to the National Radiology Data Registry (NRDR) Dose Index Registry (DIR) with the [employer] ([employer]). RADIATION OPTIMIZATION: All CT scans at this facility use at least one of these dose optimization te chniques: automated exposure control; mA and/or kV adjustment per patient size (includes targeted exa ms where dose is matched to clinical indication); or iterative reconstruction.
[2020-07-21 23:33] LABS: ALT 32 U/L (16-63); AST 12 U/L (15-37); Albumin 3.6 g/dL (3.4-5.0); Alkaline Phosphatase 51 U/L (46-116); BUN 14 mg/dL (7-18); Bilirubin, Total 0.4 mg/dL (0.2-1.0); CREATININE 1.2 mg/dL (0.70-1.30); Chloride 103 mmol/L (98-107); Glucose 152 mg/dL (74-106); Potassium 3.6 mmol/L (3.5-5.1); Sodium 140 mmol/L (136-145); Total Protein 7.5 g/dL (6.4-8.2)
[2020-07-21] MEDS: Lactated Ringers 1,000 ML 1000 ML IV (23:35)
--- NOTE | 2020-07-22 00:10 | DI.VRAD_ITS ---
PROCEDURE INFORMATION: Exam: CT Abdomen And Pelvis Without Contrast Exam date and time: 07/21/2020 11:25 PM Age: 50 years old Clinical indication: Abdominal pain; Flank; Right TECHNIQUE: Imaging protocol: Computed tomography of the abdomen and pelvis without contrast. Radiation optimization: All CT scans at this facility use at least one of these dose optimization techniques: automated exposure control; mA and/or kV adjustment per patient size (includes targeted exams where dose is matched to clinical indication); or iterative reconstruction. COMPARISON: CT renal colic wo 09/11/2018 2:28 AM FINDINGS: Liver: Liver is unremarkable as visualized. Gallbladder and bile ducts: Normal. No calcified stones. No ductal dilation. Pancreas: Normal. No ductal dilation. Spleen: Normal. No splenomegaly. Adrenal glands: Normal. No mass. Kidneys and ureters: 2 mm calculus in the proximal right ureter with mild right pelviectasis. The stone density is approximately 300 Hounsfield units and is visible on the hockey scout radiograph overlying the right L3 transverse process. There is a punctate nonobstructing calculus in the lower pole of the right kidney. Stomach and bowel: No evidence of bowel obstruction. Colonic diverticulosis without diverticulitis. Appendix: Normal appendix. Intraperitoneal space: Unremarkable. No free air. No significant fluid collection. Vasculature: Unremarkable. No abdominal aortic aneurysm. Lymph nodes: Unremarkable. No enlarged lymph nodes. Urinary bladder: Unremarkable as visualized. Reproductive: Unremarkable as visualized. Bones/joints: Unremarkable. No acute fracture. Soft tissues: Bilateral inguinal hernias containing fat. IMPRESSION: 2 mm stone in the proximal right ureter with mild right obstructive uropathy. Dictated and Authenticated by: Gene Gregg MD. Ordering:MORIS Garza MD
[2020-07-22 00:14] LABS: Bilirubin Negative (Negative); Blood Large (Negative); Clarity Sl Cloudy (Clear); Glucose Negative (Negative); Ketones Negative (Negative); Leukocyte Esterase Negative (Negative); Nitrite Negative (Negative); Urobilinogen 0.2 EU/dL (Up TO 0.2); pH 6.5 (5-8)
[2020-07-22 00:19] LABS: Bacteria Negative HPF (Negative); C & S Indicated? No; Crystals Negative HPF (Negative); Epithelial Cells Negative HPF (Negative); Mucus Trace (Negative); RBC >50 HPF (0-2); WBC Negative HPF (0-5)
[2020-07-22] MEDS: Ketorolac 30 MG/ML VIAL IVP (00:40)
[2020-07-22 00:42] VITALS: BP 126/87; PULSE 81; RESP 16; O2SAT 98
== END 2020-07-22 00:55 | disposition home or self-care (01) ==
PROVIDERS: Emergency Provider Physician Assistant; PCP Physician Assistant
DX: N20.0 Calculus of kidney (principal)
CPT/HCPCS: 80053; 96361; 96374; 99285; 74176; 81003; 81015; 85025; 99283; J1885

== ENCOUNTER 2020-08-31 16:13 | Outpatient (REF) | payer MEDICAID, SELFPAY | END 2020-08-31 16:14 | disposition home or self-care (01) | LOC: LBN 16:13 | PROVIDERS: PCP Physician Assistant; Visit Provider Urology | DX: N20.0 Calculus of kidney (principal) | CPT/HCPCS: 82365 ==

== ENCOUNTER 2020-09-15 17:22 | Outpatient (REF) | payer MEDICAID, SELFPAY ==
[2020-09-15 18:27] LABS: Creatinine,Urine 128.78 mg/dL; Sodium, Urine 105 mmol/L
[2020-09-15 18:29] LABS: Creatinine,24hr Ur 1.55 g/24hr (0.95-2.49); Total Volume 1200 ml
[2020-09-15 18:30] LABS: CLEAVED CELLS 126 mmol/24h (40-220); Total Volume 1200 ml
[2020-09-17 19:11] LABS: Magnesium Random Urine 6.5 mg/dL (See Note); Timed Urine Volume 1200 mL; Uric Acid Urine 38.7 mg/dL (See Note); Uric Acid Urine 24hr 464 mg/24hrs (250-750)
[2020-09-17 19:18] LABS: Calcium Urine 18.7 mg/dL (See Note); Calcium Urine 24 hr 224 mg/24hrs (100-300); Timed Urine Volume 1200 mL
[2020-09-19 08:14] LABS: Citrate Excretion, 24hr, U 379 mg/24 h (378 - 1191); Urine Volume 1200 mL
[2020-09-19 11:32] LABS: Oxalate, U 17.6 mg/24 h (9.7 - 40.5); Urine Volume 1200 mL
== END 2020-09-15 17:23 | disposition home or self-care (01) ==
LOC: LBN 17:22
PROVIDERS: PCP Physician Assistant; Visit Provider Urology
DX: N20.0 Calculus of kidney (principal)
CPT/HCPCS: 82507; 83735; 81050; 82340; 82570; 83945; 84300; 84560

== ENCOUNTER 2021-05-29 09:34 | Outpatient (REF) | payer MEDICAID, SELFPAY ==
[2021-05-29 17:06] LABS: BUN 12 mg/dL (7-18); Calcium 8.6 mg/dL (8.5-10.1); Calculated LDL 150 mg/dL (<100); Chloride 103 mmol/L (98-107); Cholesterol 226 mg/dL (<200); Glucose 96 mg/dL (74-106); HDL Cholesterol 35 mg/dL (40-60); Potassium 4.1 mmol/L (3.5-5.1); Sodium 139 mmol/L (136-145); Triglyceride 205 mg/dL (<150)
[2021-05-29 22:52] LABS: PSA, Screening 1.8 ng/mL (0.0-3.5)
== END 2021-05-29 09:35 | disposition home or self-care (01) ==
LOC: NCHCN 09:34
PROVIDERS: PCP Physician Assistant; Visit Provider Physician Assistant
DX: Z12.5 Encounter for screening for malignant neoplasm of prostate (principal); E78.5 Hyperlipidemia, unspecified
CPT/HCPCS: 80048; 80061; 84153

== ENCOUNTER 2021-09-25 08:39 | Emergency (ER) | payer MEDICAID, SELFPAY ==
[2021-09-25 08:42] VITALS: BP 149/98; PULSE 86; RESP 16; TEMP 36.4; O2SAT 99
--- NOTE | 2021-09-25 09:40 | ED.GENADUL_ITS ---
Discharge Plan Disposition Patient Disposition: HOME Condition: Stable Discharge Details Clinical Impression: Neck pain Primary Care Provider: Tim Champion ED Provider: Phi Avendano Home Meds and New Rx's Prescriptions: New cyclobenzaprine 7.5 mg tablet 7.5 mg PO TID PRNQty: 10 0RF Continued pantoprazole 20 mg tablet,delayed release (DR/EC) 20 mg PO DAILY Discharge Instructions Instructions: Neck Pain (ED) Additional Instructions: Flexeril as directed, may cause drowsiness. [id number] Tylenol and/or Motrin as directed for discomfort. Gentle stretching as tolerated. Cool and/or warm compresses every 2 hours for 20 minutes. Referral to physical therapy has been provided. Please watch for new or worsening symptoms and return to the ER for any concerns. Lastly, please contact your primary care provider to discuss your ER visit and need for outpatient reevaluation. As we discussed given there is no recent trauma x-ray likely little value, if symptoms persist or worsen outpatient MRI may be indicated. Stand Alone Forms: Physical Therapy Referral Discharge Data Discharge Date/Time-TO BE ENTERED AT DEPARTURE: 09/25/21 10:02 Medical Decision Making 51-year-old gentleman, past medical history of cervical herniated disc, presents for 3-day increase neck pain that he states happened after sleeping awkwardly. Denies fever, headache, trauma, radiation of pain, numbness, tingling, weakness. Reports taking [id number] Tylenol and Motrin with mild relief. States that in the past physical therapy and injection of Toradol has worked well. Clinically he appears well, nontoxic, neurologically intact, no meningeal signs. Plan is to provide a single dose of Toradol now, will set up with physical therapy, and provide a short-term prescription of Flexeril. Given there was no trauma, no midline point tenderness, emergent x-ray likely little value. If symptoms are to persist and outpatient MRI may be indicated. Standard discharge and return precautions were provided. Patient understands, is agreeable to this plan, and has no additional questions or concerns upon discharge. This documentation was generated using [employer] system, please disregard any oddities of phrase or misspellings. Medical Records Medical records reviewed: Yes I reviewed the patient's medical records. HPI General Mode of arrival: ambulatory . Date/Time Provider Initiated Documentation: 09/25/21 09:02 . Limitations to Documentation: no limitations . Information obtained by: patient . History of Present Illness 51 year old M presents to the emergency department with the chief complaint of R neck pain, described as moderate, with intensity rated at 7. Quality is described as aching, and is localized to the neck. Patient reports no radiation. Patient started experiencing this day(s) (3) and it has been constant. Immobilization improves symptom(s), Movement worsens symptoms . Patient notes no other symptoms.. Patient did receive the following treatments prior to arrival, NSAID Related Data Home Medications Medication Instructions Recorded Confirmed pantoprazole 20 mg tablet,delayed 20 mg PO DAILY 07/12/21 09/25/21 release cyclobenzaprine 7.5 mg tablet 7.5 mg PO TID PRN #10 tabs 09/25/21 Previous Rx's Medication Instructions Recorded cyclobenzaprine 7.5 mg tablet 7.5 mg PO TID PRN #10 tabs 09/25/21 Allergies Allergy/AdvReac Type Severity Reaction Status Date / Time ibuprofen Allergy Severe vomiting Unverified 09/25/21 08:48 oxycodone [From Percocet] Allergy Severe severe Unverified 09/25/21 08:48 vomiting & severe nausea Penicillins Allergy Severe severe Unverified 09/25/21 08:48 joint swelling and hives codeine Allergy Mild Unverified 09/25/21 08:48 tamsulosin AdvReac severe Verified 09/25/21 08:48 constipation black olives Allergy Intermediate Hives Uncoded 09/25/21 08:48 No Blood Transfusions Allergy Unknown Pt Uncoded 09/25/21 08:48 preference General Stated Complaint: Nk/Back Pain YARED: 4 Review of Systems Constitutional Constitutional: Denies fever(s), Denies headache(s) and Denies weakness ENT Ears, Nose, Mouth, and Throat: Denies headache(s), Reports neck pain and Denies sore throat Cardiovascular Cardiovascular: Denies chest pain and Denies dyspnea Respiratory Respiratory: Denies dyspnea Musculoskeletal Musculoskeletal: Denies back pain, Reports neck pain, Denies numbness, Reports stiffness and Denies tingling Integumentary/Breasts Skin/Breast: Denies rash Neurologic Neurologic: Denies headache(s), Denies numbness, Denies tingling and Denies weakness PFSH All Active Problems Neck pain (Acute) Kidney stone (Chronic) Colorectal polyps (Acute ~09/08/18) tubulovillous Diverticulosis (Acute ~09/08/18) Encounter for screening colonoscopy (Acute) S/P colonoscopy (Acute ~09/08/18) Medical History Allergic rhinitis Benign localized hyperplasia of prostate Erectile dysfunction GERD (gastroesophageal reflux disease) History of ADHD History of herpes simplex infection History of mood disorder Hyperlipidemia Kidney stone Pain in joint, foot, left Pain, joint, knee, left Penile wart Prediabetes Vitamin D deficiency Surgical History History of tonsillectomy Social History Smoking/Tobacco Use Status: Former Tobacco Use Smoking risk assessment performed?: Yes Alcohol Intake: former Substance use type: does not use and former substance user Details: Dabbing with marijuana/CBD daily Pt states quit drinking alcohol july 10, 1996 Do you feel safe at home: Yes Do you feel safe in your relationship?: Yes Exam Const General: cooperative, healthy appearing, comfortable and no acute distress Orientation: alert, awake and oriented x3 HENMT Head: normal to inspection, normocephalic and atraumatic Eyes General: appearance normal, both eyes and all related structures Conjunctivae: conjunctivae normal Neck Neck: normal visual inspection, no lymphadenopathy, no meningeal signs, trachea midline, supple and tender (Diffuse posterior, right side worse) Other: Decreased range of motion secondary to discomfort, worse with contralateral movement Resp Effort & Inspection: normal respiratory effort and able to speak in complete sentences Auscultation: clear to auscultation bilaterally Cardio Rate: regular rate Rhythm: regular rhythm Back/Spine/Pelvis Back: No back tenderness Skin General skin exam: no rashes or lesions noted Neuro General: patient alert, patient awake, patient oriented x3, moves all extremities and no focal motor deficits Cognition: normal cognition Speech: speech normal Gait: normal gait Motor: muscle tone normal throughout, strength 5/5 throughout, no movement abnormalities noted and no fasciculations Sensory Exam: no sensory deficits noted Extrem General: normal to inspection, full ROM and capillary refill normal Psych Appearance: grossly normal Mental Status: mental status grossly normal Course Vital Signs Vital signs: Vital Signs Temperature 36.4 C L 09/25/21 08:42 Pulse 86 09/25/21 08:42 Respiratory Rate 16 09/25/21 08:42 Blood Pressure 149/98 H 09/25/21 08:42 Pulse Oximetry 99 09/25/21 08:42 Temperature 36.4 C L 09/25/21 08:42 Temperature Source Skin 09/25/21 08:42 Pulse 86 09/25/21 08:42 Respiratory Rate 16 09/25/21 08:42 Respiratory Effort 09/25/21 08:56 Blood Pressure 149/98 H 09/25/21 08:42 Blood Pressure Position Sitting 09/25/21 08:42 Pulse Oximetry 99 09/25/21 08:42 Oxygen Delivery Method Room Air 09/25/21 08:42 Oxygen Flow Rate 0 09/25/21 08:42 Pain Level 10 09/25/21 08:42
[2021-09-25] MEDS: Ketorolac 60 MG/2 ML VIAL IM (09:51)
== END 2021-09-25 10:02 | disposition home or self-care (01) ==
PROVIDERS: Emergency Provider Physician Assistant; PCP Physician Assistant
DX: M54.2 Cervicalgia (principal); X50.1XXA Overexertion from prolonged static or awkward postures, initial encounter
CPT/HCPCS: 96372; 99284; 99283; J1885

== ENCOUNTER 2022-03-11 18:07 | Outpatient (REF) | payer MEDICAID, SELFPAY ==
[2022-03-11 18:33] LABS: ALT 22 U/L (16-63); AST 22 U/L (15-37); Albumin 3.6 g/dL (3.4-5.0); Alkaline Phosphatase 60 U/L (46-116); Anion Gap 8.7 mmol/L (3-11); BUN 14 mg/dL (7-18); Bilirubin, Total 0.4 mg/dL (0.2-1.0); CO2 25.3 mmol/L (21.0-32.0); Calculated LDL 164 mg/dL (<100); Chloride 104 mmol/L (98-107); Cholesterol 229 mg/dL (<200); Glucose 97 mg/dL (74-106); HDL Cholesterol 35 mg/dL (40-60); Potassium 4.1 mmol/L (3.5-5.1); Sodium 138 mmol/L (136-145); Total Protein 7.7 g/dL (6.4-8.2); Triglyceride 152 mg/dL (<150)
[2022-03-12 18:18] LABS: PSA, Screening 2.2 ng/mL (<=3.5)
[2022-03-15 17:30] LABS: Testosterone, Total 620 ng/dL (240-950)
== END 2022-03-11 18:08 | disposition home or self-care (01) ==
LOC: NCHCN 18:07
PROVIDERS: PCP Physician Assistant; Visit Provider Physician Assistant
DX: R68.82 Decreased libido (principal); E78.5 Hyperlipidemia, unspecified; N40.0 Benign prostatic hyperplasia without lower urinary tract symptoms
CPT/HCPCS: 80053; 80061; 84153; 84403

== ENCOUNTER 2022-04-15 11:09 | Day surgery (SDC) | payer MEDICAID, SELFPAY ==
[2022-04-15 11:28] VITALS: BP 111/83; PULSE 86; RESP 20; TEMP 36.8; O2SAT 100
--- NOTE | 2022-04-15 11:48 | W.ANESPRE ---
General Info Date of Service Date Performed: 04/15/22 Height: 5 ft 4 in Weight: 76.7 kg Body Mass Index (BMI): 29.0 Surgical Procedure: Operation Date: 04/15/22 12:35 Proposed Procedure Side Surgeon catrachito Galindo MD Meds Allergies and Home Medications Allergies Allergy/AdvReac Type Severity Reaction Status Date / Time ibuprofen Allergy Severe vomiting Verified 04/15/22 11:24 oxycodone [From Percocet] Allergy Severe severe Verified 04/15/22 11:24 vomiting & severe nausea Penicillins Allergy Severe severe Verified 04/15/22 11:24 joint swelling and hives codeine Allergy Mild Verified 04/15/22 11:24 tamsulosin AdvReac severe Verified 04/15/22 11:24 constipation black olives Allergy Intermediate Hives Uncoded 04/15/22 11:24 No Blood Transfusions Allergy Unknown Pt Uncoded 04/15/22 11:24 preference Home Medication Medication Instructions Recorded pantoprazole 20 mg tablet,delayed 20 mg PO DAILY 07/12/21 release cyclobenzaprine 7.5 mg tablet 7.5 mg PO TID PRN #10 tabs 09/25/21 bisacodyl 5 mg tablet,delayed 5 mg PO ONCE #4 tabs 04/04/22 release (Dulcolax (bisacodyl)) methylphenidate HCl 20 mg biphasic 20 mg PO TID 04/04/22 50-50 capsule,extended release polyethylene glycol 3350 17 17 g PO ONCE #238 grams 04/04/22 gram/dose oral powder Current Visit Medications: Current Medications Generic Name Dose Route Start Last Admin Trade Name Enmanuelq PRN Reason Stop Dose Admin Ringer's Solution 1,000 mls @ 80 mls/hr 04/15/22 06:00 IV 04/15/22 23:59 INFUSION BARBARA IV Miscellaneous Supplies 1 each 04/15/22 06:00 Iv Access IV 04/15/22 23:59 DIRECTED BARBARA Sodium Chloride 0 ml 04/15/22 06:00 Normal Saline Flush 10 Ml Syr IV 04/15/22 23:59 PRN PRN Sodium Chloride 0 ml 04/15/22 06:00 Normal Saline 10 Ml Vial IJ 04/15/22 23:59 DIRECTED PRN Sterile Water 0 ml 04/15/22 06:00 Water,Injection,Sterile 10 Ml Vial IJ 04/15/22 23:59 DIRECTED PRN PFSH Active Problems Active Problems: Problem Status Onset Code Kidney stone N20.0 Colorectal polyps ~09/08/18 K63.5 Diverticulosis ~09/08/18 K57.90 Encounter for screening colonoscopy Z12.11 S/P colonoscopy ~09/08/18 Z98.890 Medical History Medical History Allergic rhinitis Benign localized hyperplasia of prostate Erectile dysfunction GERD (gastroesophageal reflux disease) History of ADHD History of herpes simplex infection History of mood disorder Hyperlipidemia Kidney stone Pain in joint, foot, left Pain, joint, knee, left Penile wart Prediabetes Vitamin D deficiency Surgical History Surgical History History of tonsillectomy Tobacco Smoking/Tobacco Use Status: Former Tobacco Use Alcohol Alcohol Intake: former Substance Use Substance use type: does not use and former substance user Details: Dabbing with marijuana/CBD daily Pt states quit drinking alcohol july 10, 1996 Vital Signs and Lab Results Vital Signs Most Recent Vital Signs in EMR: Most Recent Vital Signs Temp Pulse Resp BP Pulse Ox 36.8 C 86 20 111/83 100 04/15/22 11:28 04/15/22 11:28 04/15/22 11:28 04/15/22 11:28 04/15/22 11:28 Lab Results Blood Type / Crossmatch: No Data to Display Complete Blood Count: No Data to Display Complete Metabolic Panel: No Data to Display Liver Function Panel: No Data to Display Coagulation Panel: No Data to Display Cardiac Panel: No Data to Display Arterial Blood Gas: No Data to Display Venous Blood Gas: No Data to Display Pancreas Panel: No Data to Display Thyroid Panel: No Data to Display Infectious Disease: No Data to Display Blood Cultures: No Data to Display Toxicology Panel: No Data to Display Anesthesia Assessment and Plan Anesthesia History Personal History: No History of Anesthesia Complications Family History: No Family History of Anesthesia Complications Exercise Tolerance Exercise Tolerance: Metabolic Equivalents>4 Pertinent Negatives Pertinent Negatives: No Symptoms of GERD, No Major Cardiovascular Symptoms or Complaints, No Major Pulmonary Symptoms or Complaints and No History of CVA/TIA Cardiac & Pulmonary Exam Cardiac Exam: Normal S1/S2 Heart Sounds Pulmonary Exam: Clear Bilateral Breath Sounds Implantable Cardiac Device Does patient have a Pacemaker or an ICD?: No Airway Exam Known Difficult Airway: No Mallampati Class: 3 Mouth Opening: Normal (> 3cm) Thyromental Distance: Greater than 3 cm Neck Range of Motion: Full ROM Neck Circumference: Normal Teeth Condition: Normal Dentition and Other (Adhesed articial teeth upper jaw, cracked on patient right ) ASA Classification ASA Score: ASA 2 Emergency Case?: No NPO Status NPO Status: NPO Clears >2 hours, Solids >8 hours Anesthesia Plan Resuscitation Status: Full Code Anesthesia Technique: General Anesthesia Airway Planned: Natural Airway Monitors Used: Standard Monitors
[2022-04-15] MEDS: Lactated Ringers 1,000 ML 80 ML IV (11:56)
[2022-04-15 12:12] VITALS: BMI 29.0
--- NOTE | 2022-04-15 12:40 | BOWEL_PTH ---
PATIENT: Trav Saunders LOC: [facility] U#:[id number] AGE/SX: 52/M ROOM: RE04/15/[address]: Malik Galindo : 1970 BED: DIS: 04/15/2022 SPEC #: [id number] RECD: 04/15/22 13:07 STATUS: FERNANDO RE #: [id number] ADOLFO: 04/15/22 12:[address]: Malik Galindo DEPT: Surgical Specimen RECD BY: Marcela Dubois ENTERED: 04/15/22 13:08 SP TYPE: Bowel OTHR DR: Tim Champion Tissues: 1 - BIOPSY BOWEL Procedures: GROSS AND MICRO LEVEL 4 Comments: [id number]
--- NOTE | 2022-04-15 12:48 | W.COLOREPORT ---
Date of service: 04/15/22 Time of Service: 12:48 Colonoscopy Report Procedure Description: Procedures performed: 1. Colonoscopy with snare polypectomy x1 Preoperative diagnosis: Surveillance colonoscopy Postoperative diagnosis: Colon polyps, pandiverticulosis Surgeon: Clementina Galindo Anesthesia: Artemio Indication for procedure: Patient is a 52-year-old man with no significant family history but a personal history of tubulovillous adenomas removed at his last colonoscopy 3 years ago. He has no symptoms. Findings: A 7-10 mm sessile polyp was removed from the sigmoid colon with hot snare technique. Mild diverticular changes are present throughout the entire colon including ascending and proximal transverse sections. Surveillance/follow-up recommendations: Considering his prior polyp history and finding another polyp today I recommend repeating again in 3 years. Complications: None Blood loss: Minimal Procedure in detail: Written consent was obtained from the patient who was in agreement with the risks, benefits and indications of the procedure. We went to the endoscopy suite and laid the patient in left lateral decubitus position. Anesthesia was administered which was tolerated well. A timeout was performed and when we are all in agreement we began the procedure. Digital rectal exam and visual examination was performed and within normal limits. A well?lubricated colonoscope was advanced without difficulty all the way to the cecum identified by the ileocecal valve, and triangular folds and appendiceal orifice. It was then slowly withdrawn. Retroflexion was performed in the rectum. The findings/interventions are noted above. The scope was then removed and the patient tolerated the procedure well and was then taken back to the PACU in hemodynamically stable condition.
[2022-04-15 12:50] VITALS: BP 120/84; PULSE 77; RESP 16; TEMP 36.1; O2SAT 94
--- NOTE | 2022-04-15 13:15 | W.ANESPOSTOP ---
Postoperative Evaluation Date, Time and Location Date Performed: 04/15/22 Time Performed: 13:15 Patient Location: Day Surgery Unit Vital Signs Most Recent Imported Vital Signs: Most Recent Vital Signs Temp Pulse Resp BP Pulse Ox 36.1 C L 77 16 120/84 94 04/15/22 12:50 04/15/22 12:50 04/15/22 12:50 04/15/22 12:50 04/15/22 12:50 Pain Score Most Recent Pain Score: Most Recent Pain Score Pain Level 0 04/15/22 12:50 Assessment Mental Status: Awake (Alert & Oriented to Patient Baseline) Airway and Respiratory Function: Patent airway with normal (patient baseline) respiratory exam Cardiovascular Function: Hemodynamically Stable Hydration Status: Adequately Hydrated Nausea & Vomiting: No Nausea or Vomiting Pain: Pt. Denies Any Pain Peripheral Nerve Block: Patient did not receive a nerve block
[2022-04-15 13:20] VITALS: BP 116/97; PULSE 75; RESP 18; TEMP 36; O2SAT 100
== END 2022-04-15 13:45 | disposition home or self-care (01) ==
PROVIDERS: PCP Physician Assistant; Visit Provider Student in an Organized Health Care Education/Training Program
PROC: 0DJD8ZZ Inspection of Lower Intestinal Tract, Via Natural or Artificial Opening Endoscopic (ICD-10-PCS; CPT 45378; principal; 2022-04-15 12:30)
DX: Z12.11 Encounter for screening for malignant neoplasm of colon (principal); K63.5 Polyp of colon; Z86.010 Personal history of colon polyps; K57.30 Diverticulosis of large intestine without perforation or abscess without bleeding
CPT/HCPCS: 45385; 88305

== ENCOUNTER 2022-05-24 10:39 | Outpatient (REF) | payer MEDICAID, SELFPAY ==
[2022-05-24 15:50] LABS: Calculated LDL 146 mg/dL (<100); Cholesterol 214 mg/dL (<200); HDL Cholesterol 36 mg/dL (40-60); Triglyceride 164 mg/dL (<150)
== END 2022-05-24 10:40 | disposition home or self-care (01) ==
LOC: NCHCN 10:39
PROVIDERS: PCP Physician Assistant; Visit Provider Physician Assistant
DX: E78.5 Hyperlipidemia, unspecified (principal)
CPT/HCPCS: 80061

== ENCOUNTER 2022-12-24 16:01 | Emergency (ER) | payer MEDICAID, SELFPAY ==
[2022-12-24 16:13] VITALS: BP 138/90; PULSE 90; RESP 18; TEMP 36.7; O2SAT 99
--- NOTE | 2022-12-24 17:29 | DI.CT_ITS ---
Exam(s) CT ABDOMEN PELVIS WO EXAM: CT ABDOMEN PELVIS WO CLINICAL HISTORY: right flank pain, hx of kidney stones. TECHNIQUE: Imaging Protocol: Axial computed tomography images with coronal and sagittal reformatted images were created and reviewed. COMPARISON: CT CT RENAL COLIC WO from 07/21/2020 FINDINGS: ABDOMEN: Lung Bases: Mild coronary artery calcifications. There is mild dependent atelectasis in the lung bas es. Liver: Normal density. No measurable mass. Gallbladder and biliary tract: No radiodense calculus or biliary ductal dilation. Pancreas: Normal density, no abnormal calcifications or inflammatory process. Spleen: Normal. Kidneys: Normal size, contour and axis.There is a 3 mm stone in the proximal right ureter with minima l hydronephrosis. There is left nephrolithiasis but no hydronephrosis. No masses seen. Adrenal glands: No mass is seen. Lymph nodes: Within normal limits. Abdominal Aorta: Abdominal portion non-dilated. Atherosclerosis. PELVIS: Bladder:Symmetric distention, no gross wall thickening. Bowel: No obstruction or bowel wall thickening. Appendix is unremarkable. There are few scattered di verticula present but no evidence of acute diverticulitis. Peritoneal cavity: No ascites, collection or mesenteric inflammatory response. No free air. Reproductive organs: The prostate gland is enlarged. Bones: Within normal limits. Soft Tissues: There are bilateral fat containing inguinal hernias. IMPRESSION: 1. There is a 3 mm proximal right ureteral stone with minimal hydronephrosis. 2. Findings were discussed with Dr. Al at 7:05 p.m. on 12/24/2022. RADIATION DOSE DELIVERED: 866.86mGy.cm Total DLP DATA REPOSITORY: All CT scans at this facility are submitted to the National Radiology Data Registry (NRDR) Dose Index Registry (DIR) with the [employer] (ACR). RADIATION OPTIMIZATION: All CT scans at this facility use at least one of these dose optimization te chniques: automated exposure control; mA and/or kV adjustment per patient size (includes targeted exa ms where dose is matched to clinical indication); or iterative reconstruction.
--- NOTE | 2022-12-24 17:34 | ED.GENADUL_ITS ---
Discharge Plan Disposition Patient Disposition: Home Discharge Details Chief Complaint: FlankPain Clinical Impression: Kidney stone Primary Care Provider: Tim Champion ED Provider: Harsh Al Home Meds and New Rx's Prescriptions: No Action methylphenidate HCl 20 mg capsule,ER biphasic 50-50 20 mg PO TID bisacodyl [Dulcolax (bisacodyl)] 5 mg tablet,delayed release (DR/EC) 5 mg PO ONCE Qty: 4 0RF Rx Instructions: Take according to provider's instructions for colonoscopy prep. polyethylene glycol 3350 17 gram/dose powder 17 g PO ONCE Qty: 238 0RF Rx Instructions: To be taken as directed by prescriber's office for colonoscopy prep. pantoprazole 20 mg tablet,delayed release (DR/EC) 20 mg PO DAILY cyclobenzaprine 7.5 mg tablet 7.5 mg PO TID PRNQty: 10 0RF Discharge Instructions Instructions: Kidney Stones (ED), How to Strain Your Urine (ED) Additional Instructions: Please follow-up with urology next week. Please return to the emergency department for any worsening symptom Medical Decision Making 52-year-old male history of recurrent kidney stones presents with right flank pain associate with nausea and vomiting. Prior kidney stones all passed spontaneously. No history of stenting. Patient is hemodynamically stable afebrile nontoxic. Likely recurrent nephrolithiasis with renal colic lower suspicion for UTI and pyelonephritis. Trial of anti-inflammatory antiemetics fluids tamsulosin, basic labs urinalysis CT abdomen pelvis to assess size of stone and for any hydronephrosis. 19: 39 feeling better after medications. No evidence of UTI. 3 mm right ureteral stone. Patient follow-up closely with urology. Home care instructions and return precautions given HPI General Date/Time Provider Initiated Documentation: 12/24/22 17:29 . HPI Narrative: 52-year-old male history of kidney stones presents with acute onset right flank pain this afternoon associate with nausea and vomiting Related Data Home Medications Medication Instructions Recorded Confirmed pantoprazole 20 mg tablet,delayed 20 mg PO DAILY 07/12/21 04/15/22 release cyclobenzaprine 7.5 mg tablet 7.5 mg PO TID PRN #10 tabs 09/25/21 04/15/22 bisacodyl 5 mg tablet,delayed 5 mg PO ONCE #4 tabs 04/04/22 04/15/22 release (Dulcolax (bisacodyl)) methylphenidate HCl 20 mg biphasic 20 mg PO TID 04/04/22 04/15/22 50-50 capsule,extended release polyethylene glycol 3350 17 17 g PO ONCE #238 grams 04/04/22 04/15/22 gram/dose oral powder Previous Rx's Medication Instructions Recorded cyclobenzaprine 7.5 mg tablet 7.5 mg PO TID PRN #10 tabs 09/25/21 bisacodyl 5 mg tablet,delayed 5 mg PO ONCE #4 tabs 04/04/22 release (Dulcolax (bisacodyl)) polyethylene glycol 3350 17 17 g PO ONCE #238 grams 04/04/22 gram/dose oral powder Allergies Allergy/AdvReac Type Severity Reaction Status Date / Time ibuprofen Allergy Severe vomiting Verified 04/15/22 11:24 oxycodone [From Percocet] Allergy Severe severe Verified 04/15/22 11:24 vomiting & severe nausea Penicillins Allergy Severe severe Verified 04/15/22 11:24 joint swelling and hives codeine Allergy Mild Verified 04/15/22 11:24 tamsulosin AdvReac severe Verified 04/15/22 11:24 constipation black olives Allergy Intermediate Hives Uncoded 04/15/22 11:24 No Blood Transfusions Allergy Unknown Pt Uncoded 04/15/22 11:24 preference General Stated Complaint: FlankPain YARED: 3 Review of Systems Narrative: Physical Examination General: alert, awake, cooperative, appears uncomfortable HEENT: normocephalic, atraumatic; PERRL, EOM intact, conjunctiva normal; no nasal discharge; moist mucous membranes, oral and pharyngeal mucosa normal, tolerating secretions Neck: supple, trachea midline; full ROM Chest: normal to inspection Respiratory: normal respiratory effort, speaking in full sentences, clear to auscultation, no wheezing, rales or rhonchi Cardiac: regular rate, regular rhythm, S1S2 intact, no murmurs rubs or gallops GI: abdomen soft, non-tender, non-distended; no palpable mass or hepatosplenomegaly Skin: no lesions, rashes or trauma appreciated Neuro: AAOx3, normal speech, moving all extremities Psych: Appropriate mood and affect PFSH All Active Problems (Updated 04/23/22 @ 14:35 by Sylvia Brice RN) Kidney stone (Chronic) Tubular adenoma of colon (Acute) Kidney stone (Chronic) Colorectal polyps (Acute ~09/08/18) tubulovillous Diverticulosis (Acute ~09/08/18) Encounter for screening colonoscopy (Acute) S/P colonoscopy (Acute ~09/08/18) Medical History (Updated 12/24/22 @ 19:41 by Harsh Al MD) Allergic rhinitis Benign localized hyperplasia of prostate Erectile dysfunction GERD (gastroesophageal reflux disease) History of ADHD History of herpes simplex infection History of mood disorder Hyperlipidemia Kidney stone Pain in joint, foot, left Pain, joint, knee, left Penile wart Prediabetes Vitamin D deficiency Surgical History (Updated 04/23/22 @ 14:35 by Sylvia Brice RN) History of colonoscopy (~04/2022) History of tonsillectomy Social History Smoking/Tobacco Use Status: Former Tobacco Use Quit Date: 04/15/92 Smoking risk assessment performed?: Yes Alcohol Intake: former Drug use: Current Sobriety Substance use type: does not use and former substance user Details: Dabbing with marijuana/CBD daily Pt states quit drinking alcohol july 10, 1996 Do you feel safe at home: Yes Do you feel safe in your relationship?: Yes Course Vital Signs Vital signs: Vital Signs Temperature 36.7 C 12/24/22 16:13 Pulse 90 12/24/22 16:13 Respiratory Rate 18 12/24/22 16:13 Blood Pressure 138/90 12/24/22 16:13 Pulse Oximetry 99 12/24/22 16:13 Temperature 36.7 C 12/24/22 16:13 Temperature Source Oral 12/24/22 16:13 Pulse 90 12/24/22 16:13 Respiratory Rate 18 12/24/22 16:13 Blood Pressure 138/90 12/24/22 16:13 Blood Pressure Position Supine 12/24/22 16:13 Pulse Oximetry 99 12/24/22 16:13 Oxygen Delivery Method Room Air 12/24/22 16:13 Oxygen Flow Rate 0 12/24/22 16:13 Pain Level 8 12/24/22 16:13
[2022-12-24] MEDS: Tamsulosin 0.4 MG CAPCR PO (17:35)
[2022-12-24] MEDS: Ketorolac 15 MG/ML VIAL IVP ×2 (17:35→19:45)
[2022-12-24] MEDS: Ondansetron 4 MG/2 ML VIAL IVP (17:35)
[2022-12-24] MEDS: Normal Saline 1,000 ML 1000 ML IV (17:35)
[2022-12-24 18:06] LABS: Abs Immature Grans 0.03 10^3/uL (0.0-0.06); Absolute Basophil Count 0.02 10^3/uL (0.0-0.2); Absolute Eosinophil Count 0.01 10^3/uL (0.0-0.7); Absolute Lymphocyte Count 1.52 10^3/uL (1.2-3.4); Absolute Monocyte Count 0.34 10^3/uL (0.1-0.8); Absolute Neutrophil Count 5.75 10^3/uL (1.2-6.7); Basophils % 0.3; Eosinophils % 0.1; HCT 45.5 % (40.0-50.0); HGB 15.3 g/dL (13.5-17.5); Immature Grans % 0.4; Lymphocytes % 19.8; MCH 29.9 pg (27.0-33.0); MCHC 33.6 % (32.0-36.0); MCV 89 fL (80-95); Monocytes % 4.4; Platelet Count 299 10^3/uL (130-400); RBC 5.12 10^6/uL (4.36-5.78); RDW 12.2 % (11.8-14.1); RDW-SD 39.8 fL; WBC 7.67 10^3/uL (4.4-10.8)
[2022-12-24 18:24] LABS: ALT 26 U/L (16-63); AST 9 U/L (15-37); Alkaline Phosphatase 71 U/L (46-116); Anion Gap 8.7 mmol/L (3-11); BUN 15 mg/dL (7-18); Bilirubin, Total 0.6 mg/dL (0.2-1.0); CO2 27.3 mmol/L (21.0-32.0); CREATININE 1.3 mg/dL (0.70-1.30); Calcium 9.4 mg/dL (8.5-10.1); Chloride 106 mmol/L (98-107); Estimated GFR 65.28 (mL/min/1.73m2); Glucose 153 mg/dL (74-106); Potassium 3.8 mmol/L (3.5-5.1); Sodium 142 mmol/L (136-145); Total Protein 7.9 g/dL (6.4-8.2)
[2022-12-24 19:29] LABS: Bilirubin Small (Negative); Blood Large (Negative); Clarity Cloudy (Clear); Glucose Negative (Negative); Ketones Trace mg/dL (Negative); Leukocyte Esterase Negative (Negative); Nitrite Negative (Negative); Specific Gravity >= 1.030 (1.005-1.025); Urobilinogen 0.2 mg/dL (Up to 0.2); pH 6.5 (5-8)
[2022-12-24 19:36] LABS: RBC >50 HPF (0-2)
[2022-12-24 19:37] LABS: C & S Indicated? No
== END 2022-12-24 20:16 | disposition home or self-care (01) ==
PROVIDERS: Emergency Provider Emergency Medicine; PCP Physician Assistant
DX: N13.2 Hydronephrosis with renal and ureteral calculous obstruction (principal); Z87.891 Personal history of nicotine dependence
CPT/HCPCS: 80053; 96361; 96374; 99284; 74176; 81003; 81015; 85025; 99283; J1885; J2405

== ENCOUNTER 2023-02-04 16:12 | Outpatient (REF) | payer MEDICAID, SELFPAY ==
[2023-02-10 23:49] LABS: Source: Passed Stone
== END 2023-02-04 16:13 | disposition home or self-care (01) ==
LOC: LBN 16:12
PROVIDERS: PCP Physician Assistant; Visit Provider Urology
DX: N20.0 Calculus of kidney (principal)
CPT/HCPCS: 82365

== ENCOUNTER 2023-06-18 18:01 | Outpatient (REF) | payer MEDICAID, SELFPAY ==
[2023-06-18 16:59] LABS: ALT 32 U/L (16-63); AST 13 U/L (15-37); Albumin 3.8 g/dL (3.4-5.0); Alkaline Phosphatase 57 U/L (46-116); Anion Gap 8.9 mmol/L (3-11); BUN 14 mg/dL (7-18); Bilirubin, Total 0.5 mg/dL (0.2-1.0); CO2 29.1 mmol/L (21.0-32.0); Calcium 9.4 mg/dL (8.5-10.1); Calculated LDL 199 mg/dL (<100); Chloride 105 mmol/L (98-107); Cholesterol 269 mg/dL (<200); Estimated GFR 88.88 (mL/min/1.73m2); Glucose 110 mg/dL (74-106); HDL Cholesterol 43 mg/dL (40-60); Potassium 4.3 mmol/L (3.5-5.1); Sodium 143 mmol/L (136-145); Total Protein 7.5 g/dL (6.4-8.2); Triglyceride 138 mg/dL (<150)
[2023-06-18 22:22] LABS: PSA, Screening 2.2 ng/mL (<=3.5)
== END 2023-06-18 18:02 | disposition home or self-care (01) ==
LOC: NCHCN 18:01
PROVIDERS: PCP Physician Assistant; Visit Provider Physician Assistant
DX: E78.5 Hyperlipidemia, unspecified (principal); Z12.5 Encounter for screening for malignant neoplasm of prostate
CPT/HCPCS: 80053; 80061; 84153

== ENCOUNTER 2024-07-13 15:43 | Outpatient (REF) | payer BC, SELFPAY ==
[2024-07-13 15:34] LABS: ALT 38 U/L (16-63); AST 15 U/L (15-37); Albumin 3.7 g/dL (3.4-5.0); Alkaline Phosphatase 62 U/L (46-116); BUN 11 mg/dL (7-18); Bilirubin, Total 0.5 mg/dL (0.2-1.0); Calcium 9.3 mg/dL (8.5-10.1); Calculated LDL 69 mg/dL (<100); Chloride 106 mmol/L (98-107); Cholesterol 128 mg/dL (<200); Estimated GFR 88.33 (mL/min/1.73m2); Glucose 100 mg/dL (74-106); HDL Cholesterol 40 mg/dL (>or=40); Potassium 4.1 mmol/L (3.5-5.1); Sodium 142 mmol/L (136-145); Total Protein 7.1 g/dL (6.4-8.2); Triglyceride 98 mg/dL (<150)
[2024-07-13 15:37] LABS: Hemoglobin A1C 5.4 % (<5.7)
[2024-07-13 23:13] LABS: PSA, Screening 2.2 ng/mL (<=3.5)
== END 2024-07-13 15:44 | disposition home or self-care (01) ==
LOC: NCHCN 15:43
PROVIDERS: PCP Physician Assistant; Visit Provider Physician Assistant
DX: E78.5 Hyperlipidemia, unspecified (principal); Z13.1 Encounter for screening for diabetes mellitus; Z12.5 Encounter for screening for malignant neoplasm of prostate
CPT/HCPCS: 80053; 80061; 84153; 83036

== ENCOUNTER 2024-10-17 20:17 | Emergency (ER) | payer BC, SELFPAY ==
[2024-10-17 20:19] VITALS: BP 151/110; PULSE 85; RESP 16; TEMP 37.1; O2SAT 96
--- NOTE | 2024-10-17 20:42 | W.ED.GENAD ---
Discharge Plan Disposition Patient Disposition: Home Condition: Stable Discharge Details Clinical Impression: Dry tooth socket Primary Care Provider: Tim Champion ED Provider: Alpa Davila Home Meds and New Rx's Prescriptions: No Action pantoprazole 20 mg tablet,delayed release (DR/EC) 20 mg PO DAILY atorvastatin 20 mg tablet 20 mg PO QHS methylphenidate HCl 10 mg tablet 10 mg PO DAILY sertraline 50 mg tablet 50 mg PO DAILY valacyclovir 500 mg tablet 500 mg PO PRN Discharge Instructions Instructions: Dry Socket Additional Instructions: You were seen in the emergency department today for evaluation of dental pain after extraction, concerning for dry socket. You have already obtained the oil of clove, and should use that for management of your pain. You can continue to use the oral morphine that I provided you for severe breakthrough pain. Tomorrow you can restart taking Tylenol, but should take no more than 1000 mg every 6 hours. Do not exceed this amount of medication as it is dangerous to your liver. Please keep your dental appointment for tomorrow afternoon, and thank you for allowing us to be part of your care. HPI General Mode of arrival: ambulatory. Date/Time Provider Initiated Documentation: 10/17/24 20:28. Limitations to Documentation: no limitations. Information obtained by: patient and old records reviewed. HPI Narrative: This is a 54-year-old male patient with a past medical history significant for recent upper tooth extractions, presenting for evaluation of dental pain, nausea and vomiting, and a white tongue. The patient reports that since his extraction on Friday he has been utilizing Tylenol, 1000 mg every 2 hours even overnight, trying to manage his pain. He reports an allergy to ibuprofen, states that his pain worsened this morning, he took 2000 mg of Tylenol, and then was able to go to the pharmacy and get some clove oil for his dry socket. The patient presented tonight because he noticed that the tongue appears white, noticed some nausea with vomiting/dry heaving, and has been unable to maintain oral intake. He has not had fevers or chills, does have a visit with his dentist scheduled for tomorrow. Related Data Home Medications ?Medication ?Instructions ?Recorded ?Confirmed pantoprazole 20 mg tablet,delayed 20 mg PO DAILY 07/12/21 10/17/24 release atorvastatin 20 mg tablet 20 mg PO QHS 07/15/24 10/17/24 methylphenidate HCl 10 mg tablet 10 mg PO DAILY 07/15/24 10/17/24 sertraline 50 mg tablet 50 mg PO DAILY 07/15/24 10/17/24 valacyclovir 500 mg tablet 500 mg PO PRN 10/17/24 10/17/24 Allergies Allergy/AdvReac Type Severity Reaction Status Date / Time ibuprofen Allergy Severe vomiting Verified 10/17/24 20:27 oxycodone (From Percocet) Allergy Severe severe Verified 10/17/24 20:27 vomiting & severe nausea Penicillins Allergy Severe severe Verified 10/17/24 20:27 joint swelling and hives codeine Allergy Mild Unknown Verified 10/17/24 20:27 tamsulosin AdvReac severe Verified 10/17/24 20:27 constipation black olives Allergy Intermediate Hives Uncoded 10/17/24 20:27 No Blood Transfusions Allergy Unknown Pt Uncoded 10/17/24 20:27 preference General Stated Complaint: DentalOral YARED: 4 Exam Narrative Exam Narrative: Gen: Awake and alert, in no apparent distress HEENT: Non-icteric sclera, EOMs full. The patient has evidence postextraction concerning for dry socket most especially in the upper back molar area, also has postextraction changes of the bilateral upper canines and right back molar. No purulence, periapical abscesses or other severe infectious findings. The patient does have a dry appearing tongue with some white discoloration, does not appear heaped up or able to be scraped. Neck: Supple Lungs: No apparent respiratory distress, normal respiratory effort. CV: Appears well perfused Abdomen: Non-distended, soft, nontender to palpation MSK: Moves 4 extremities without apparent limitation in ROM Skin: Visualized skin without rashes, cyanosis. Neuro: Normal Gait, no obvious focal deficits or facial asymmetry. Speaks in full, clear sentences. Psych: Appropriate for situation. Course Vital Signs Vital signs: Vital Signs Temperature 37.1 C 10/17/24 20:19 Pulse 85 10/17/24 20:19 Respiratory Rate 16 10/17/24 20:19 Blood Pressure 151/110 H 10/17/24 20:19 Pulse Oximetry 96 10/17/24 20:19 Temperature 37.1 C 10/17/24 20:19 Temperature Source Temporal Artery Scan 10/17/24 20:19 Pulse 85 10/17/24 20:19 Respiratory Rate 16 10/17/24 20:19 Blood Pressure 151/110 H 10/17/24 20:19 Blood Pressure Position Sitting 10/17/24 20:19 Pulse Oximetry 96 10/17/24 20:19 Oxygen Delivery Method Room Air 10/17/24 20:19 Oxygen Flow Rate 0 10/17/24 20:19 Pain Level 7 10/17/24 20:19 Medical Decision Making This is a 54-year-old male patient presenting for evaluation of dental pain after extraction, as well as nausea with vomiting. My differential includes but is not limited to dry socket, postextraction pain, considered dental infection his exam is reassuring at this time and he is without fever or tachycardia. The discoloration of his tongue does not appear consistent with thrush. I am concerned given the amount of Tylenol that he has been taking for chronic Tylenol overdose. Considered hepatitis and liver abnormalities, anemia, electrolyte derangement, dehydration. We will obtain laboratory studies to include CBC, CMP, magnesium, Tylenol level, and I will provide the patient with a dose of Zofran for management of his nausea. Given his poor oral intake I will provide him with a liter of IV fluids for rehydration. He received IV morphine for pain management. - I independently interpreted the laboratory studies, which show no significant leukocytosis, anemia, or thrombocytopenia. The chemistry panel is without evidence of electrolyte abnormality, kidney dysfunction, or liver injury. Acetaminophen level undetectable. I did guidance counselor this patient on safe Tylenol dosing. He has had improvement in his pain after morphine, and no ongoing nausea. I provided him with a short course of oral morphine for ongoing pain management, I am reassured that the patient has a dental clinic visit tomorrow, and will be reevaluated. He already has close oil for his dry socket. I will hold on antibiosis at this time. At this time, the patient has had a full medical evaluation and is safe for discharge to home. They are hemodynamically stable, ambulatory, and tolerating PO. They are understanding of the follow-up plan and return precautions. They left our facility without incident. Alpa Davila MD [facility] All Active Problems (Updated 04/23/22 @ 14:35 by Sylvia Brice RN) Dry tooth socket (Acute) Trigger thumb, left thumb (Acute) Tubular adenoma of colon (Acute) Kidney stone (Chronic) Colorectal polyps (Acute ~09/08/18) tubulovillous Diverticulosis (Acute ~09/08/18) Encounter for screening colonoscopy (Acute) S/P colonoscopy (Acute ~09/08/18) Medical History (Updated 10/17/24 @ 21:59 by Alpa Davila MD) Allergic rhinitis Hyperlipidemia Vitamin D deficiency Erectile dysfunction Penile wart Pain, joint, knee, left GERD (gastroesophageal reflux disease) Prediabetes Benign localized hyperplasia of prostate Pain in joint, foot, left History of herpes simplex infection History of mood disorder History of ADHD Kidney stone Surgical History (Updated 04/23/22 @ 14:35 by Sylvia Brice RN) History of colonoscopy (~04/2022) History of tonsillectomy Social History Smoking/Tobacco Use Status: Former Tobacco Use Quit Date: 04/15/92 Smoking risk assessment performed?: Yes Alcohol Intake: former Drug use: Current Sobriety Substance use type: does not use and former substance user Details: Dabbing with marijuana/CBD daily Pt states quit drinking alcohol july 10, 1996 Do you feel safe at home: Yes Do you feel safe in your relationship?: Yes
[2024-10-17] MEDS: Ondansetron 4 MG/2 ML VIAL IVP (21:01)
[2024-10-17 21:07] LABS: Abs Immature Grans 0.02 10^3/uL (0.0-0.06); Absolute Basophil Count 0.02 10^3/uL (0.0-0.2); Absolute Eosinophil Count 0.01 10^3/uL (0.0-0.7); Absolute Lymphocyte Count 1.67 10^3/uL (1.2-3.4); Absolute Neutrophil Count 5.79 10^3/uL (1.2-6.7); Basophils % 0.3 %; Eosinophils % 0.1 %; HCT 42.7 % (40.0-50.0); HGB 14.5 g/dL (13.5-17.5); Immature Grans % 0.3 %; Lymphocytes % 21.1 %; MCH 29.7 pg (27.0-33.0); MCV 87 fL (80-95); MPV 8.8 fL (8.0-11.0); Monocytes % 5.1 %; Neutrophils % 73.1 %; Platelet Count 268 10^3/uL (130-400); RBC 4.89 10^6/uL (4.36-5.78); RDW 11.9 % (11.8-14.1); RDW-SD 38.5 fL; WBC 7.91 10^3/uL (4.4-10.8)
[2024-10-17 21:26] LABS: ALT 36 U/L (16-63); AST 16 U/L (15-37); Albumin 3.7 g/dL (3.4-5.0); Alkaline Phosphatase 73 U/L (46-116); Anion Gap 10.8 mmol/L (3-11); BUN 11 mg/dL (7-18); Bilirubin, Total 0.8 mg/dL (0.2-1.0); CO2 27.2 mmol/L (21.0-32.0); CREATININE 0.8 mg/dL (0.70-1.30); Calcium 9.2 mg/dL (8.5-10.1); Chloride 103 mmol/L (98-107); Estimated GFR 103.87 (mL/min/1.73m2); Glucose 115 mg/dL (74-106); Magnesium 1.7 mg/dL (1.8-2.4); Potassium 3.6 mmol/L (3.5-5.1); Sodium 141 mmol/L (136-145); Total Protein 7.7 g/dL (6.4-8.2)
[2024-10-17] MEDS: Lactated Ringers 1,000 ML 1000 ML IV (21:44)
[2024-10-17] MEDS: MORPHine 4 MG/ML SYR IVP (21:44)
[2024-10-17 21:46] VITALS: BP 143/100; PULSE 94; RESP 16; O2SAT 98
[2024-10-17 21:50] LABS: Acetaminophen < 2 ug/mL (10-30)
[2024-10-17] MEDS: MORPHine IR 15 MG TAB (22:18)
[2024-10-17 22:21] VITALS: PULSE 78; RESP 16; O2SAT 98
== END 2024-10-17 22:32 | disposition home or self-care (01) ==
PROVIDERS: Emergency Provider Emergency Medicine; PCP Physician Assistant
DX: M27.3 Alveolitis of jaws (principal); Z98.818 Other dental procedure status; Z87.891 Personal history of nicotine dependence
CPT/HCPCS: 36415; 80053; 96361; 96374; 96375; 99284; 80329; 83735; 85025; J2270; J2405

== ENCOUNTER 2025-01-27 17:25 | Outpatient (REF) | payer BC, SELFPAY ==
[2025-01-27 21:32] LABS: TSH (W/Ref FT4) 2.27 uIU/mL (0.36-3.74); Vitamin B12 304 pg/mL (193-986)
== END 2025-01-27 17:26 | disposition home or self-care (01) ==
LOC: NCHCN 17:25
PROVIDERS: PCP Physician Assistant; Visit Provider Physician Assistant
DX: R41.3 Other amnesia (principal)
CPT/HCPCS: 82607; 84443